=== PATIENT | female | born 1955 | race Caucasian/White ===

== ENCOUNTER 2021-01-26 02:23 | Outpatient (RCR) | payer MEDICARE, MEDICAID, SELFPAY | END 2021-02-07 23:59 | disposition home or self-care (01) | LOC: INF 02:23 | PROVIDERS: PCP Family Medicine; Visit Provider Internal Medicine Hematology & Oncology | DX: C21.0 Malignant neoplasm of anus, unspecified (principal); Z45.2 Encounter for adjustment and management of vascular access device | CPT/HCPCS: 36573 ==

== ENCOUNTER 2021-02-23 02:37 | Outpatient (RCR) | payer MEDICARE, MEDICAID, SELFPAY ==
[2021-02-23 11:26] LABS: Abs Immature Grans 0.05 10^3/uL (0.0-0.06); Absolute Basophil Count 0.01 10^3/uL (0.0-0.2); Absolute Eosinophil Count 0.13 10^3/uL (0.0-0.7); Absolute Lymphocyte Count 0.31 10^3/uL (1.2-3.4); Absolute Monocyte Count 0.49 10^3/uL (0.1-0.8); Absolute Neutrophil Count 3.46 10^3/uL (1.2-6.7); Basophils % 0.2; Eosinophils % 2.9; HCT 26.6 % (36.0-46.0); HGB 8.8 g/dL (11.2-15.7); Immature Grans % 1.1; MCH 32.2 pg (27.0-33.0); MCHC 33.1 % (32.0-36.0); MCV 97.4 fL (80-95); MPV 10.2 fL (8.0-11.0); Neutrophils % 77.8; Nucleated RBC 0 %; Platelet Count 113 10^3/uL (130-400); RBC 2.73 10^6/uL (3.93-5.22); RDW 14.3 % (11.7-14.6); WBC 4.45 10^3/uL (4.4-10.8)
[2021-02-23 11:41] LABS: Diff Comment Diff Reviewed; RBC Morphology Normal
== END 2021-03-10 23:59 | disposition home or self-care (01) ==
LOC: INF 02:37
PROVIDERS: PCP Family Medicine; Visit Provider Internal Medicine Hematology & Oncology
DX: C21.0 Malignant neoplasm of anus, unspecified (principal); Z45.2 Encounter for adjustment and management of vascular access device
CPT/HCPCS: 36573; 36592; 85025

== ENCOUNTER 2021-04-20 12:11 | Outpatient (RCR) | payer MEDICARE, MEDICAID, SELFPAY ==
[2021-04-20 12:10] LABS: Abs Immature Grans 0.06 10^3/uL (0.0-0.06); Absolute Basophil Count 0.03 10^3/uL (0.0-0.2); Absolute Eosinophil Count 0.13 10^3/uL (0.0-0.7); Absolute Lymphocyte Count 0.55 10^3/uL (1.2-3.4); Absolute Monocyte Count 0.85 10^3/uL (0.1-0.8); Absolute Neutrophil Count 3.59 10^3/uL (1.2-6.7); Basophils % 0.6; Eosinophils % 2.5; HCT 35.8 % (36.0-46.0); HGB 11.4 g/dL (11.2-15.7); Immature Grans % 1.2; Lymphocytes % 10.6; MCH 33.5 pg (27.0-33.0); MCHC 31.8 % (32.0-36.0); MCV 105.3 fL (80-95); MPV 9.4 fL (8.0-11.0); Monocytes % 16.3; Neutrophils % 68.8; Nucleated RBC 0 %; Platelet Count 257 10^3/uL (130-400); RDW 17.2 % (11.7-14.6); RDW-SD 66.3 fL; WBC 5.21 10^3/uL (4.4-10.8)
[2021-04-20 12:57] LABS: ALT 43 U/L (14-59); AST 34 U/L (15-37); Albumin 3.3 g/dL (3.4-5.0); Alkaline Phosphatase 139 U/L (46-116); Anion Gap 8.3 mmol/L (3-11); BUN 8 mg/dL (7-18); Bilirubin, Total 0.3 mg/dL (0.2-1.0); CO2 29.7 mmol/L (21.0-32.0); CREATININE 0.8 mg/dL (0.55-1.02); Calcium 9.3 mg/dL (8.5-10.1); Chloride 105 mmol/L (98-107); Glucose 100 mg/dL (74-106); Potassium 3.8 mmol/L (3.5-5.1); Sodium 143 mmol/L (136-145); Total Protein 7.1 g/dL (6.4-8.2)
== END 2021-05-10 23:59 | disposition home or self-care (01) ==
LOC: INF 12:11
PROVIDERS: PCP Family Medicine; Visit Provider Internal Medicine Hematology & Oncology
DX: C21.0 Malignant neoplasm of anus, unspecified (principal); Z45.2 Encounter for adjustment and management of vascular access device
CPT/HCPCS: 36415; 80053; 85025

== ENCOUNTER → 2024-01-30 14:24 | Outpatient (BNVA) | payer MEDICARE, MEDICAID, SELFPAY | PROVIDERS: PCP Family Medicine; Referring Provider Family Medicine; Visit Provider Student in an Organized Health Care Education/Training Program | DX: M24.661 Ankylosis, right knee (principal) | CPT/HCPCS: 99203 ==

== ENCOUNTER → 2024-02-13 02:07 | Outpatient (CLI) | payer MEDICARE, MEDICAID, SELFPAY ==
--- NOTE | 2024-02-13 07:30 | DI.CT_ITS ---
Exam(s) CT LOWER EXTREMITY RT WO EXAM: CT LOWER EXTREMITY RT WO CLINICAL HISTORY: rt knee pain, m25.561,m24.669,arthrofibrosis of knee joint. TECHNIQUE: Imaging Protocol: Axial computed tomography images with coronal and sagittal reformatted images were created and reviewed. CONTRAST MATERIAL: Intravenous: None COMPARISON: DX Femur RT from 11/19/2022 FINDINGS: HARDWARE: There is a lateral fixation plate in the femur extending to the level of the lateral femora l condyle. There is also an ipsilateral total knee prosthesis. There is no obvious joint effusion. OSSEOUS: There are no obvious fractures evident. No evidence of obvious hardware loosening. No evidence of o steomyelitis. IMPRESSION: No obvious hardware loosening. No obvious joint effusion. No evidence of osteomyelitis. RADIATION DOSE DELIVERED: Total DLP DATA REPOSITORY: All CT scans at this facility are submitted to the National Radiology Data Registry (NRDR) Dose Index Registry (DIR) with the [employer] (A[employer]). RADIATION OPTIMIZATION: All CT scans at this facility use at least one of these dose optimization te chniques: automated exposure control; mA and/or kV adjustment per patient size (includes targeted exa ms where dose is matched to clinical indication); or iterative reconstruction.
== END ==
PROVIDERS: PCP Family Medicine; Visit Provider Student in an Organized Health Care Education/Training Program
DX: M24.661 Ankylosis, right knee (principal); M25.561 Pain in right knee
CPT/HCPCS: 73700

== ENCOUNTER 2024-03-21 10:41 | Day surgery (SDC) | payer MEDICARE, MEDICAID, SELFPAY ==
[2024-03-21] VITALS (25 sets, daily range): BP systolic 130–167; BP diastolic 62–96; PULSE 65–84; RESP 10–23; TEMP 35.9–36.6; O2SAT 94–98; BMI 25.3
[2024-03-21] MEDS: Celecoxib 200 MG CAP 400 MG PO (11:12)
[2024-03-21] MEDS: Acetaminophen 500 MG TAB 1000 MG PO (11:12)
[2024-03-21] MEDS: Lactated Ringers 1,000 ML 80 ML IV (11:30)
--- NOTE | 2024-03-21 12:11 | HPE_ITS ---
Assessment and Plan Assessment and plan (1) Arthrofibrosis of knee joint: Status: Acute Assessment and plan: Simran is a 68-year-old female who has had significant trauma to right hand following knee replacement. She now is arthrofibrosis. As a step to hopefully treat some of her symptoms of stiffness and pain I recommended arthroscopic synovectomy. Is quite possible that some of her symptoms are coming from the plate irritation of the IT band or even potentially loosening of the components. However, based on her clinical history the most likely scenario is scarring from within the knee. Therefore, I offered arthroscopic synovectomy. She has no other medical constraints to surgery today. I reviewed the technical details. I reviewed rehabilitation time frames. I discussed the risk to include bleeding, infection, pain, continued stiffness. Despite these risk, she elected to proceed. History of Present Illness History of Present Illness Chief Complaint: Right Knee Pain and Stiffness Narrative: Simran is a 68-year-old female who is status post right knee replacement and another institution. She suffered a periprosthetic distal femur fracture which was fixed with open reduction and a long sideplate. She was able to heal this fracture but continued to have stiffness and difficulties with the knee. Prior to the fall she felt the knee was doing well with excellent range of motion. She reports some stiffness within the knee and limited flexion. She also has some pain overlying the plate. Please see the previous office note for complete detailed history but she is here today for arthroscopic synovectomy of the right knee with manipulation due to arthrofibrosis. She denies any new health ch anges. No numbness or tingling. Review of Systems All systems reviewed & are unremarkable except as noted in HPI and below PFSH All Active Problems Arthrofibrosis of knee joint (Acute) Sacroiliac joint dysfunction of right side (Chronic) Spondylosis of lumbar region without myelopathy or radiculopathy (Chronic) Spondylosis of lumbar region without myelopathy or radiculopathy (Acute) Medical History Mass of anus Excision of anal canal mass 12/01/20 Colon cancer Psychophysiologic insomnia Osteoporosis Nicotine dependence Idiopathic osteoarthritis Hyperlipidemia Alopecia GERD (gastroesophageal reflux disease) Chronic pain syndrome Hx of pneumothorax Overweight (BMI 25.0-29.9) Tobacco abuse Pain of right hip joint Breast cancer Lumbosacral spondylosis Depression Chronic insomnia Dyslipidemia Cervical spondylosis Primary osteoarthritis Folliculitis of perineum Lateral epicondylitis, right elbow Surgical History radiation Replacement of total knee joint Total replacement of hip 2006 and 2012 Rotator Cuff Repair Abdominal hysterectomy Breast, Lumpectomy Family History Mother Pneumonia Father Heart disease Other Diabetes Essential hypertension Social History Smoking/Tobacco Use Status: Former Tobacco Use Smoking risk assessment performed?: Yes Alcohol Intake: never Drug use: Never Substance use type: does not use Details: currently has a nicotine patch on Housing: house Do you feel safe at home: Yes Do you feel safe in your relationship?: Yes Meds Allergies and Home Medications Allergies Allergy/AdvReac Type Severity Reaction Status Date / Time Penicillins Allergy Intermediate Hives Verified 03/21/24 11:08 meperidine Allergy Unknown vomiting Verified 03/21/24 11:08 venlafaxine (From Effexor) Allergy Unknown vomiting Verified 03/21/24 11:08 Home Medications ?Medication ?Instructions ?Recorded ?Confirmed ?Type atorvastatin 80 mg tablet 80 mg PO DAILY 06/15/22 03/21/24 History diclofenac sodium 1 % topical gel 2 g topical TID 06/15/22 03/21/24 History (Voltaren Arthritis Pain) lidocaine 4 % topical patch 1 patch topical DAILY PRN 06/15/22 03/21/24 History lidocaine 5 % topical ointment 1 applic topical BID 06/15/22 03/21/24 History nicotine 21 mg/24 hr daily 1 patch transdermal Q24H 06/15/22 03/21/24 History transdermal patch trazodone 100 mg tablet 200 mg PO DAILY 06/15/22 03/21/24 History cholecalciferol (vitamin D3) 50 50 mcg PO DAILY 03/20/24 03/21/24 History mcg (2,000 unit) capsule lisinopril 10 mg tablet 10 mg PO DAILY 03/20/24 03/21/24 History sertraline 25 mg tablet 25 mg PO DAILY 03/20/24 03/21/24 History Exam Const General: cooperative, healthy appearing, comfortable and no acute distress Resp Effort & Inspection: normal respiratory effort Auscultation: clear to auscultation bilaterally Cardio Rate: regular rate Rhythm: regular rhythm Results Last Vital Signs Temp 35.9 C L 03/21/24 11:00 Pulse 80 03/21/24 11:00 Resp 20 03/21/24 11:00 BP 145/74 H 03/21/24 11:00 Pulse Ox 94 03/21/24 11:00
--- NOTE | 2024-03-21 12:13 | ANES.PREOP_ITS ---
General Info Date of Service Date Performed: 03/21/24 Height: 5 ft 2 in Weight: 62.8 kg Body Mass Index (BMI): 25.3 Surgical Procedure: Operation Date: 03/21/24 14:25 Proposed Procedure Side Surgeon p Knee Arthroscopy Synovectomy Right Madi Patel MD Meds Allergies and Home Medications Allergies Allergy/AdvReac Type Severity Reaction Status Date / Time Penicillins Allergy Intermediate Hives Verified 03/21/24 11:08 meperidine Allergy Unknown vomiting Verified 03/21/24 11:08 venlafaxine (From Effexor) Allergy Unknown vomiting Verified 03/21/24 11:08 Home Medication ?Medication ?Instructions ?Recorded atorvastatin 80 mg tablet 80 mg PO DAILY 06/15/22 diclofenac sodium 1 % topical gel 2 g topical TID 06/15/22 (Voltaren Arthritis Pain) lidocaine 4 % topical patch 1 patch topical DAILY PRN 06/15/22 lidocaine 5 % topical ointment 1 applic topical BID 06/15/22 nicotine 21 mg/24 hr daily 1 patch transdermal Q24H 06/15/22 transdermal patch trazodone 100 mg tablet 200 mg PO DAILY 06/15/22 cholecalciferol (vitamin D3) 50 50 mcg PO DAILY 03/20/24 mcg (2,000 unit) capsule lisinopril 10 mg tablet 10 mg PO DAILY 03/20/24 sertraline 25 mg tablet 25 mg PO DAILY 03/20/24 Current Visit Medications: Current Medications Generic Name Dose Route Start Last Admin Trade Name Freq PRN Reason Stop Dose Admin Acetaminophen 1,000 mg 03/21/24 06:00 03/21/24 11:12 Acetaminophen 500 Mg Tab PO 03/21/24 23:59 1,000 mg PREOP DARRICK Administration Celecoxib 400 mg 03/21/24 06:00 03/21/24 11:12 Celecoxib 200 Mg Cap PO 03/21/24 23:59 400 mg PREOP DARIRCK Administration Ringer's Solution 1,000 mls @ 80 mls/hr 03/21/24 06:00 03/21/24 11:30 IV 03/21/24 23:59 80 mls/hr INFUSION DARRICK Administration Cefazolin Sodium/Dextrose 2 gm in 50 mls @ 100 mls/hr 03/21/24 06:00 Ancef Duplex IVPB 03/21/24 23:59 PREOP DARRICK Tranexamic Acid/Sodium Chloride 1,000 mg in 100 mls @ 600 mls/hr 03/21/24 0 6:00 IVPB 03/21/24 23:59 PREOP DARRICK IV Miscellaneous Supplies 1 each 03/21/24 06:00 Iv Access IV 03/21/24 23:59 DIRECTED DARRICK Sodium Chloride 0 ml 03/21/24 06:00 Normal Saline Flush 10 Ml Syr IV 03/21/24 23:59 PRN PRN Sodium Chloride 0 ml 03/21/24 06:00 Normal Saline 10 Ml Vial IJ 03/21/24 23:59 DIRECTED PRN Sterile Water 0 ml 03/21/24 06:00 Water,Injection,Sterile 10 Ml Vial IJ 03/21/24 23:59 DIRECTED PRN PFSH Active Problems Active Problems: Problem Status Onset Code Arthrofibrosis of knee joint Acute M24.669 Sacroiliac joint dysfunction of right side Chronic M53.3 Spondylosis of lumbar region without myelopathy or radiculopathy Chronic M47.816 Spondylosis of lumbar region without myelopathy or radiculopathy Acute M47.816 Medical History Medical History Mass of anus Excision of anal canal mass 12/01/20 Colon cancer Psychophysiologic insomnia Osteoporosis Nicotine dependence Idiopathic osteoarthritis Hyperlipidemia Alopecia GERD (gastroesophageal reflux disease) Chronic pain syndrome Hx of pneumothorax Overweight (BMI 25.0-29.9) Tobacco abuse Pain of right hip joint Breast cancer Lumbosacral spondylosis Depression Chronic insomnia Dyslipidemia Cervical spondylosis Primary osteoarthritis Folliculitis of perineum Lateral epicondylitis, right elbow Surgical History Surgical History radiation Replacement of total knee joint Total replacement of hip 2006 and 2012 Rotator Cuff Repair Abdominal hysterectomy Breast, Lumpectomy Tobacco Smoking/Tobacco Use Status: Former Tobacco Use Alcohol Alcohol Intake: never Substance Use Substance use: Never Substance use type: does not use Details: currently has a nicotine patch on Vital Signs and Lab Results Vital Signs Most Recent Vital Signs in EMR: Most Recent Vital Signs Temp Pulse Resp BP Pulse Ox 35.9 C L 80 20 145/74 H 94 03/21/24 11:00 03/21/24 11:00 03/21/24 11:00 03/21/24 11:00 03/21/24 11:00 Lab Results Blood Type / Crossmatch: No Data to Display Complete Blood Count: No Data to Display Complete Metabolic Panel: No Data to Display Liver Function Panel: No Data to Display Coagulation Panel: No Data to Display Cardiac Panel: No Data to Display Arterial Blood Gas: No Data to Display Venous Blood Gas: No Data to Display Pancreas Panel: No Data to Display Thyroid Panel: No Data to Display Infectious Disease: No Data to Display Blood Cultures: No Data to Display Toxicology Panel: No Data to Display Anesthesia Assessment and Plan Anesthesia History Personal History: No History of Anesthesia Complications Family History: No Family History of Anesthesia Complications Exercise Tolerance Exercise Tolerance: Metabolic Equivalents>4 Cardiac & Pulmonary Exam Cardiac Exam: Normal S1/S2 Heart Sounds Pulmonary Exam: Clear Bilateral Breath Sounds Implantable Cardiac Device Does patient have a Pacemaker or an ICD?: No Airway Exam Known Difficult Airway: No Mallampati Class: 4 Mouth Opening: Narrow (< 3cm) Thyromental Distance: Less than 3 cm Neck Range of Motion: Limited ROM Neck Circumference: Normal Teeth Condition: Edentulous ASA Classification ASA Score: ASA 2 Emergency Case?: No NPO Status NPO Status: NPO Clears >2 hours, Solids >8 hours Anesthesia Plan Resuscitation Status: Full Code Anesthesia Technique: General Anesthesia Airway Planned: Endotracheal Tube Monitors Used: Standard Monitors Preoperative Comments:: 68 yo female for knee scope/manipulation. Sig PMHx: HTN (lisinopril), GERD (denies), depression, chronic pain, cervical spondylosis. former smoker.
--- NOTE | 2024-03-21 13:08 | W.ANESNERVE ---
Nerve Block Single Injection Procedure Date and Time Date Performed: 03/21/24 Procedure Start: 12:50 Location Where Procedure Performed Procedure Location: Day Surgery Unit Reason Performed: Postoperative Analgesia Requesting Provider: Madi Patel Timeout Performed Timeout Performed: Yes Monitoring Used ECG, Blood Pressure, SpO2 and See EMR for corresponding vital signs Sterility Sterility: Hand Hygiene, Surgical Cap, Surgical Mask, Sterile Gloves and Chlorhexidine Sedation Given During Procedure Sedation Given (Indicate Dose Given): Propofol IV Dose:: 20mg Patient Mental Status Patient Mental Status: Sedate with meaningful communication Nerve Block 1st Nerve Block: Laterality: Right Block Type: Adductor Canal Ultrasound Image Saved?: Yes Needle / Catheter Used: 100mm SonoPlex II Local Anesthetic Bolus (Indicate Dose Given): Lidocaine used for local infiltration of skin, Injected in 3-5ml increments after negative blood aspiration and Bupivacaine 0.25% Dose:: 12ml Additives (Indicate Dose Given): None Ultrasound: Sterile probe cover and gel used Nerve Stimulator: Supplement to Ultrasound use and No twitch or parasthesia noted < 0.5 mA Paresthesia: None Procedure Tolerated: No Complications and Patient tolerated well Procedure Outcome: Successful Performed By: Isaiah Mac Supervised By: Sonny Frost
[2024-03-21] MEDS: ceFAZolin 2 GM/50 ML BAG IVPB (13:35)
[2024-03-21] MEDS: TRANEXAMIC ACID/SOD. CHL. 1,000 MG/100 ML BAG 600 MG IVPB (13:41)
--- NOTE | 2024-03-21 14:02 | W.PM.DSUDISC ---
Date of service: 03/21/24 Time of Service: 14:03 Discharge Plan Disposition Patient Disposition: Home Condition: Good Discharge Details Reason For Visit: R Knee Arthroscopy Attending Provider: Madi Patel Primary Care Provider: ANA BLACK Home Meds and New Rx's Prescriptions: New hydrocodone-acetaminophen 5-325 mg tablet 1 tab PO Q6H PRN (Reason: pain) Qty: 6 0RF acetaminophen 500 mg tablet 1,000 mg PO TID Qty: 90 0RF ibuprofen 600 mg tablet 600 mg PO TID PRN (Reason: pain) Qty: 90 0RF Continued atorvastatin 80 mg Tablet 80 mg PO DAILY lidocaine 4 % Adhesive Patch,Medicated 1 patch TOPICAL DAILY PRN trazodone 100 mg Tablet 200 mg PO DAILY nicotine 21 mg/24 hr Patch 24 Hour 1 patch TRANSDERMAL Q24H diclofenac sodium [Voltaren Arthritis Pain] 1 % Gel 2 g TOPICAL TID lidocaine 5 % Ointment 1 applic TOPICAL BID lisinopril 10 mg tablet 10 mg PO DAILY Patient Comments: TAKE 1 TABLET BY MOUTH ONCE DAILY sertraline 25 mg tablet 25 mg PO DAILY Patient Comments: TAKE 1 TABLET BY MOUTH ONCE DAILY cholecalciferol (vitamin D3) 50 mcg (2,000 unit) capsule 50 mcg PO DAILY Patient Comments: TAKE 1 CAPSULE BY MOUTH ONCE DAILY Discharge Instructions Additional Instructions: Knee Manipulation Discharge Instructions Activity: You should begin moving as soon as possible. You may work on flexion but also equally maintain extension. You may bear weight as tolerated, using crutches only for support/comfort. You should apply ice to help with swelling and elevate when possible (especially in the first few days). Dressings: The knee dressing may come down after 48 hours. You may shower and get the wound wet at that time. You should keep the wounds covered with a bandaid until follow-up. Medications: - Rarely does this require any stronger pain medications. - Recommend to take up to 1000mg of Acetaminophen (Tylenol) and 600mg of Ibuprofen (Advil) every 8 hours as needed. These larger strength tablets were called in but you also may use [id number]. Follow-up: 7-10 days Stand Alone Forms: Amanda Knee Arthroscopy Equipment/Supplies: Partial Weight Bearing Crutches Activity:: Activity as Tolerated Remove Dressings/Wound Care:: 48 hours Shower/Bathe:: 48 hours Diet:: As Tolerated Discharge Orders Discharge Orders: Discharge Order (Routine); Ordered 03/21/24 Ordered By: Justino Vaughn DS: Diagnosis Discharge Diagnosis (1) Arthrofibrosis of knee joint: Status: Acute
[2024-03-21] MEDS: Bupivacaine 0.5% Pres-Free 30 ML VIAL (14:03)
[2024-03-21] MEDS: EPINEPHrine 10 MG/10 ML ML (14:44)
--- NOTE | 2024-03-21 15:49 | W.ANESPOSTOP ---
Postoperative Evaluation Date, Time and Location Date Performed: 03/21/24 Time Performed: 15:28 Patient Location: Day Surgery Unit Vital Signs Most Recent Imported Vital Signs: Most Recent Vital Signs Temp Pulse Resp BP Pulse Ox 36.4 C L 67 16 165/65 H 96 03/21/24 15:15 03/21/24 15:15 03/21/24 15:15 03/21/24 15:15 03/21/24 15:15 Pain Score Most Recent Pain Score: Most Recent Pain Score Pain Level 2 03/21/24 15:15 Assessment Mental Status: Awake (Alert & Oriented to Patient Baseline) Airway and Respiratory Function: Patent airway with normal (patient baseline) respiratory exam Cardiovascular Function: Hemodynamically Stable Hydration Status: Adequately Hydrated Nausea & Vomiting: No Nausea or Vomiting Pain: Pain is tolerable per patient Peripheral Nerve Block: Patient did not receive a nerve block
--- NOTE | 2024-03-21 17:20 | ROE_ITS ---
Date of service: 03/21/24 Time of Service: 14:00 Operative Note Operative Note DATE OF PROCEDURE: 03/21/24 PRE-OP DIAGNOSIS: Right Knee Pain and Arthrofibrosis POST-OP DIAGNOSIS: same PROCEDURE: Arthroscopic Synovectomy of 3 Compartments with Manipulation - RIGHT Knee SURGEON: Mdai Patel ANESTHESIA TYPE: General LMA/ETT Refer to Anesthesia Record ESTIMATED BLOOD LOSS: 0 PATHOLOGY: none sent TOURNIQUET TIME: 0 COMPLICATIONS: None Patient was transported to: PACU Patient's condition: stable Indications: I have seen Simran in clinic for symptoms of arthrofibrosis of the knee following fracture fixation of a periprosthetic fracture after remote knee replacement surgery. Nonoperative measures were exhausted but disability due to lack of motion persisted. I discussed knee arthroscopy with synovectomy with manipulation with the patient. I reviewed the risks of the procedure to include, but not limited to, bleeding, infection, pain, continued stiffness, recurrence, blood clot. Despite these risks, the patient elected to proceed. Findings: Preoperative Range of Motion: Flexion: 90 Extension:0 Postoperative Range of Motion: Flexion:125 Extension:0 Procedure Description: Simran was greeted in the preoperative holding area where the correct side was identified and marked. The consent was reviewed with the patient and signed. The history and physical was updated. All questions were answered. She was taken back to the operating room. The patient was placed into the supine position on the operating room table. All bony prominences were well padded. Prophylactic antibiotics in the form of Cefazolin were administered. Preoperative range of motion was assessed as 0 - 90. The right leg was then prepped with Chloraprep and draped in a standard fashion with stockinette and extremity drape. A timeout to confirm correct identity, side and site, procedure, allergies, anesthesia, and medical concerns was performed. A standard lateral portal was made at the lateral border of the patella tendon in line with the inferior pole of the patella, soft spot. The skin and deep tissue was incised sharply and the blunt trochar was inserted atraumatically. At this point, I had visualization of the femoral component. A superolateral portal was then established with spinal needle localization just superior and lateral to the patella. A knife was taken down through the skin and soft tissue to enter the knee joint. Starting in the superior compartment above the femoral component and anterior to the femur I released all scarring between the anterior femoral synovium and the overlying extensor mechanism. This was taken through all of any noticeable scar tissue until the superior patellar pouch was fully released and mobile. There were tight scar bands throughout the space with minimal opening of the suprapatellar region. This resection was carried out mostly with electrocautery as well as shaver. Once this was released fully from lateral to medial superiorly I then continue working down the lateral gutter. All scar tissue in the lateral gutter was released so there is normal space and movement between the capsular tissues and the edge of the femoral component and femur. This was taken down through the lateral gutter such that I was able to identify the polyethylene to its posterior corner. Once again, all scar tissue in this area was resected so the polyethylene was easily visible and there is no interposed tissue in the back or the polyethylene was identified. I then continued to work anteriorly. To continue the synovectomy from the lateral compartment to the anterior compartment into the medial compartment, I placed a medial portal under spinal needle localization. Once this was in place it became another working portal and I continued the synovectomy through the anterior compartment to the medial compartment. There was interposed tissue seen anteriorly from within the notch and also about the lateral and medial as pect of the polyethylene?femur interface. I freed up the medial gutter so I was able to visualize the polyethylene from anterior to posterior. There is no interposed tissue after full synovectomy was performed. Adhesions between the capsule and the femur were released. This was continued up the medial gutter until it met up with the releases performed previously in the superior compartment. Any remnant scar tissue from around the patella was then removed with a shaver and electrocautery. The arthroscope was brought back into the suprapatellar pouch and the leg was in full extension. The knee was thoroughly irrigated with the arthroscopic fluid on high flow and pressure. Inflow was stopped and excess fluid was removed. The leg was removed from the spider leg quinteros and manipulation was performed. I first push the knee into flexion and was able to obtain 125 degrees. The wounds were closed with 4-0 Nylon. 0.5% bupivacaine was injected around the portal sites and into the knee. The wounds were dressed with Xeroform, 4x4 gauze, ABD pad, Kerlix and an NELIDA wrap. A cryo-cuff was applied. The patient tolerated the procedure well and was returned to the Same Day Surgery area in a stable condition suffering no known complication..
== END 2024-03-21 16:15 | disposition home or self-care (01) ==
PROVIDERS: PCP Family Medicine; Visit Provider Student in an Organized Health Care Education/Training Program
PROC: (CPT 29870; principal; 2024-03-21 14:15)
DX: M24.661 Ankylosis, right knee (principal); K21.9 Gastro-esophageal reflux disease without esophagitis; E78.5 Hyperlipidemia, unspecified; G89.4 Chronic pain syndrome; F17.210 Nicotine dependence, cigarettes, uncomplicated
CPT/HCPCS: 29876; J0665; J0690; J1100; J1805; J2405; J2704

== ENCOUNTER → 2024-04-02 13:21 | Outpatient (BNVA) | payer MEDICARE, MEDICAID, SELFPAY | PROVIDERS: PCP Family Medicine; Referring Provider Family Medicine | DX: Z47.89 Encounter for other orthopedic aftercare (principal); R29.898 Other symptoms and signs involving the musculoskeletal system ==

== ENCOUNTER → 2024-04-30 14:40 | Outpatient (BNVA) | payer MEDICARE, MEDICAID, SELFPAY | PROVIDERS: PCP Family Medicine; Referring Provider Family Medicine; Visit Provider Student in an Organized Health Care Education/Training Program | DX: Z47.89 Encounter for other orthopedic aftercare (principal); M24.661 Ankylosis, right knee | CPT/HCPCS: 99213 ==

== ENCOUNTER 2024-05-15 01:17 | Outpatient (CLI) | payer MEDICARE, MEDICAID, SELFPAY ==
--- NOTE | 2024-05-15 07:15 | DI.NM_ITS ---
Exam(s) NM BONE SCAN 3 PHASE EXAM: NM BONE SCAN 3 PHASE CLINICAL HISTORY: PAIN, ?LOOSENING of orthopedic device,[id number]. TECHNIQUE: Injected Dose: 25 mCi Tc-99m MDP Flow images, immediate static images and delayed images of the knees were performed. Whole body arlyn yed images were also performed. COMPARISON: CR XR HIP MIN 2V RT from 02/11/2022 CR XR LS SPINE 2-3 VIEWS from 02/11/2022 CR XR FEMUR 2 VIEWS RIGHT (GENERIC) from 04/07/2022 DX XR FEMUR 2 VIEWS RIGHT (GENERIC) from 05/06/2022 DX XR FEMUR 2 VIEWS RIGHT (GENERIC) from 08/27/2022 DX Femur RT from 11/19/[address] LOWER EXTREMITY RT WO from 02/13/2024 FINDINGS: Perfusion: Mildly increased flow to the right knee. Blood Pool: Increased activity seen around the right knee, at the distal femur. Delayed: Persistent increased activity noted around the femoral component of the knee prosthesis as w ell as patella. Mildly increased activity noted along the femoral fixation plate. Mildly increased activity at both sternoclavicular joints, mid thoracic and upper lumbar spine, presu mably degenerative. IMPRESSION: Increased activity around the femoral portion of the knee prosthesis as well as patella, suspicious f or loosening. DATA REPOSITORY:
== END 2024-05-15 01:37 ==
LOC: DI 01:17
PROVIDERS: PCP Family Medicine; Visit Provider Student in an Organized Health Care Education/Training Program
DX: T84.84XA Pain due to internal orthopedic prosthetic devices, implants and grafts, initial encounter (principal); Z96.652 Presence of left artificial knee joint
CPT/HCPCS: 78315

== ENCOUNTER → 2024-06-11 13:19 | Outpatient (BNVA) | payer MEDICARE, MEDICAID, SELFPAY | PROVIDERS: PCP Family Medicine; Referring Provider Family Medicine; Visit Provider Student in an Organized Health Care Education/Training Program | DX: M24.661 Ankylosis, right knee (principal) | CPT/HCPCS: 99214 ==

== ENCOUNTER 2024-07-23 03:33 | Outpatient (CLI) | payer MEDICARE, MEDICAID, SELFPAY ==
[2024-07-23 15:25] LABS: HCT 38.4 % (36.0-46.0); HGB 12.7 g/dL (11.2-15.7); MCH 31.2 pg (27.0-33.0); MCHC 33.1 % (32.0-36.0); MCV 94 fL (80-95); MPV 9.3 fL (8.0-11.0); Platelet Count 235 10^3/uL (130-400); RBC 4.07 10^6/uL (3.93-5.22); RDW 13.2 % (11.7-14.6); RDW-SD 45.4 fL; WBC 6.11 10^3/uL (4.4-10.8)
[2024-07-23 16:19] LABS: Anion Gap 7.2 mmol/L (3-11); BUN 13 mg/dL (7-18); CO2 30.8 mmol/L (21.0-32.0); CREATININE 0.9 mg/dL (0.55-1.02); Calcium 9.3 mg/dL (8.5-10.1); Chloride 107 mmol/L (98-107); Glucose 122 mg/dL (74-106); Potassium 4.2 mmol/L (3.5-5.1); Sodium 145 mmol/L (136-145)
== END 2024-07-23 03:34 | disposition home or self-care (01) ==
LOC: LBO 03:33
PROVIDERS: PCP Family Medicine; Visit Provider Student in an Organized Health Care Education/Training Program
DX: T84.032A Mechanical loosening of internal right knee prosthetic joint, initial encounter (principal); M24.669 Ankylosis, unspecified knee; Z01.818 Encounter for other preprocedural examination
CPT/HCPCS: 36415; 80048; 85027

== ENCOUNTER 2024-08-31 08:26 | Inpatient (IN) | payer MEDICARE, MEDICAID, SELFPAY ==
[2024-08-31] VITALS (51 sets, daily range): BP systolic 82–157; BP diastolic 35–113; PULSE 65–98; RESP 11–21; TEMP 36.3–37; O2SAT 91–97; BMI 26.4
--- NOTE | 2024-08-31 | DI.RAD_ITS ---
Exam(s) XR KNEE RT 2V AP,LAT EXAM: XR KNEE RT 2V AP,LAT CLINICAL HISTORY: s/p removal of hardware and revision TKA. TECHNIQUE: 2D digital imaging was performed. COMPARISON: DX Femur RT from 11/19/2022 FINDINGS: Two views Postop AP supine and cross-table lateral views reveal a revision arthroplasty with long stem componen ts in place which appears to be in satisfactory position alignment. No evidence of fracture. In addition, the previously present fixation plate on the lateral aspect of the femur which was evide nt on images of 11/19/2022 has been removed IMPRESSION: Satisfactory postop appearance of revision prosthesis DATA REPOSITORY: RADIATION DOSE DELIVERED:
[2024-08-31] MEDS: Gabapentin 300 MG CAP PO ×2 (09:14→20:28)
[2024-08-31] MEDS: Acetaminophen 500 MG TAB 1000 MG PO ×2 (09:14→20:28)
[2024-08-31] MEDS: Celecoxib 200 MG CAP 400 MG PO (09:14)
[2024-08-31] MEDS: Lactated Ringers 1,000 ML 80 ML IV ×2 (09:30→12:21)
--- NOTE | 2024-08-31 10:16 | W.ANESPRE ---
General Info Date of Service Date Performed: 08/31/24 Height: 5 ft 2 in Weight: 65.4 kg Body Mass Index (BMI): 26.4 Surgical Procedure: Operation Date: 08/31/24 11:55 Proposed Procedure Side Surgeon p Knee Total Revision, Attune w/Hardware Removal Right Madi Patel MD Meds Allergies and Home Medications Allergies Allergy/AdvReac Type Severity Reaction Status Date / Time Penicillins Allergy Intermediate Hives Verified 08/31/24 09:09 meperidine Allergy Unknown vomiting Verified 08/31/24 09:09 venlafaxine (From Effexor) Allergy Unknown vomiting Verified 08/31/24 09:09 Home Medication ?Medication ?Instructions ?Recorded atorvastatin 80 mg tablet 80 mg PO DAILY 06/15/22 diclofenac sodium 1 % topical gel 2 g topical TID 06/15/22 (Voltaren Arthritis Pain) trazodone 100 mg tablet 200 mg PO DAILY 06/15/22 cholecalciferol (vitamin D3) 50 50 mcg PO DAILY 03/20/24 mcg (2,000 unit) capsule lisinopril 10 mg tablet 10 mg PO DAILY 03/20/24 acetaminophen 500 mg tablet 1,000 mg (2 x 500 mg) PO TID #90 03/21/24 tabs ibuprofen 600 mg tablet 600 mg PO TID PRN pain #90 tabs 03/21/24 sertraline 25 mg tablet 50 mg PO DAILY 07/23/24 acetaminophen 500 mg tablet 1,000 mg (2 x 500 mg) PO Q8H PRN 08/31/24 pain #90 tabs aspirin 81 mg tablet,delayed 81 mg PO BID 30 days #60 tabs 08/31/24 release celecoxib 200 mg capsule (Celebrex) 200 mg PO BID PRN #60 caps 08/31/24 dexamethasone 4 mg tablet 4 mg PO DAILY #2 tabs 08/31/24 docusate sodium 100 mg capsule 100 mg PO BID #30 caps 08/31/24 (Colace) gabapentin 300 mg capsule 300 mg PO QHS #14 caps 08/31/24 oxycodone 5 mg tablet 5 mg PO Q4H PRN #18 tabs 08/31/24 pantoprazole 40 mg tablet,delayed 40 mg PO DAILY 14 days #14 tabs 08/31/24 release Current Visit Medications: Current Medications Generic Name Dose Route Start Last Admin Trade Name Freq PRN Reason Stop Dose Admin Acetaminophen 1,000 mg 08/31/24 06:00 08/31/24 09:14 Acetaminophen 500 Mg Tab PO 08/31/24 23:59 1,000 mg PREOP DARRICK Administration Acetaminophen 1,000 mg 08/31/24 14:00 Acetaminophen 500 Mg Tab PO TID DARRICK Aspirin 81 mg 08/31/24 20:00 Aspirin E.C. 81 Mg Tabec PO BID DARRICK Celecoxib 400 mg 08/31/24 06:00 08/31/24 09:14 Celecoxib 200 Mg Cap PO 08/31/24 23:59 400 mg PREOP DARRICK Administration Celecoxib 200 mg 08/31/24 20:00 Celecoxib 200 Mg Cap PO BID DARRICK Dexamethasone 4 mg 09/01/24 08:30 Dexamethasone 4 Mg Tab PO 09/02/24 08:31 DAILY DARRICK Docusate Sodium 100 mg 08/31/24 09:51 Docusate Sodium 100 Mg Cap PO BID PRN PRN Constipation Gabapentin 300 mg 08/31/24 06:00 08/31/24 09:14 Gabapentin 300 Mg Cap PO 08/31/24 23:59 300 mg PREOP DARRICK Administration Gabapentin 300 mg 08/31/24 20:00 Gabapentin 300 Mg Cap PO HS DARRICK Hydromorphone HCl 0.5 mg 08/31/24 09:51 Hydromorphone 2 Mg/Ml Syr IVP Q2H PRN PRN Ringer's Solution 1,000 mls @ 80 mls/hr 08/31/24 06:00 08/31/24 09:30 IV 08/31/24 23:59 80 mls/hr INFUSION DARRICK Administration Cefazolin Sodium/Dextrose 2 gm in 50 mls @ 100 mls/hr 08/31/24 06:00 Ancef Duplex IVPB 08/31/24 23:59 PREOP DARRICK Tranexamic Acid/Sodium Chloride 1,000 mg in 100 mls @ 600 mls/hr 08/31/24 06:00 IVPB 08/31/24 23:59 PREOP DARRICK Cefazolin Sodium/Dextrose 1 gm in 50 mls @ 100 mls/hr 08/31/24 10:00 Ancef Duplex IVPB 09/01/24 02:29 Q8H DARRICK IV Miscellaneous Supplies 1 each 08/31/24 06:00 Iv Access IV 08/31/24 23:59 DIRECTED DARRICK Ondansetron HCl 4 mg 08/31/24 09:51 Ondansetron 4 Mg/2 Ml Vial IVP Q6H PRN PRN Nausea Oxycodone HCl 0 mg 08/31/24 09:51 Oxycodone 5 Mg Tab PO Q3H PRN PRN Pain Pantoprazole Sodium 40 mg 09/01/24 07:30 Pantoprazole 40 Mg Tabcr PO DAILY@0730 [facility] Polyethylene Glycol 17 gm 08/31/24 09:51 Polyethylene Glycol 3350 17 Gm Packet PO BID PRN PRN Constipation Sodium Chloride 0 ml 08/31/24 06:00 Normal Saline Flush 10 Ml Syr IV 08/31/24 23:59 PRN PRN Sodium Chloride 0 ml 08/31/24 06:00 Normal Saline 10 Ml Vial IJ 08/31/24 23:59 DIRECTED PRN Sterile Water 0 ml 08/31/24 06:00 Water,Injection,Sterile 10 Ml Vial IJ 08/31/24 23:59 DIRECTED PRN PFSH Active Problems Active Problems: Problem Status Onset Code Mechanical loosening of internal right knee prosthetic joint Acute T84.032A Arthrofibrosis of knee joint Acute M24.669 Sacroiliac joint dysfunction of right side Chronic M53.3 Spondylosis of lumbar region without myelopathy or radiculopathy Chronic M47.816 Spondylosis of lumbar region without myelopathy or radiculopathy Acute M47.816 Medical History Medical History Colon cancer Psychophysiologic insomnia Osteoporosis Nicotine dependence quit on 02/09/24 Idiopathic osteoarthritis Hyperlipidemia Alopecia GERD (gastroesophageal reflux disease) Chronic pain syndrome Hx of pneumothorax Overweight (BMI 25.0-29.9) Tobacco abuse Pain of right hip joint Breast cancer Lumbosacral spondylosis Depression Chronic insomnia Dyslipidemia Cervical spondylosis Primary osteoarthritis Folliculitis of perineum Lateral epicondylitis, right elbow Surgical History Surgical History Mass of anus Excision of anal canal mass 12/01/20 - pt is unaware this was an excision; thought it was biopsy History of total right knee replacement (TKR) followed ORIF of right distal femur radiation Total replacement of hip Left Hemiarthroplasty 2006 Left AG 2012 Rotator Cuff Repair Bilateral Abdominal hysterectomy Breast, Lumpectomy Bilateral (Right first and more significant) Tobacco Smoking/Tobacco Use Status: Former Tobacco Use Alcohol Alcohol Intake: never Substance Use Substance use: Never Substance use type: does not use Vital Signs and Lab Results Vital Signs Most Recent Vital Signs in EMR: Most Recent Vital Signs Temp Pulse Resp BP Pulse Ox 36.4 C L 75 14 120/77 93 08/31/24 08:59 08/31/24 08:59 08/31/24 08:59 08/31/24 08:59 08/31/24 08:59 Lab Results Blood Type / Crossmatch: No Data to Display Complete Blood Count: No Data to Display Complete Metabolic Panel: No Data to Display Liver Function Panel: No Data to Display Coagulation Panel: No Data to Display Cardiac Panel: No Data to Display Arterial Blood Gas: No Data to Display Venous Blood Gas: No Data to Display Pancreas Panel: No Data to Display Thyroid Panel: No Data to Display Infectious Disease: No Data to Display Blood Cultures: No Data to Display Toxicology Panel: No Data to Display Anesthesia Assessment and Plan Anesthesia History Personal History: No History of Anesthesia Complications Family History: Other (daughter slow to wake) Exercise Tolerance Exercise Tolerance: Metabolic Equivalents<4 Pertinent Negatives Pertinent Negatives: No Symptoms of GERD, No Major Cardiovascular Symptoms or Complaints, No Major Pulmonary Symptoms or Complaints and No History of CVA/TIA Cardiac & Pulmonary Exam Cardiac Exam: Normal S1/S2 Heart Sounds Pulmonary Exam: Clear Bilateral Breath Sounds Cardiac and Pulmonary Comment:: See below in comments Implantable Cardiac Device Does patient have a Pacemaker or an ICD?: No Airway Exam Known Difficult Airway: No Mallampati Class: 4 Mouth Opening: Narrow (< 3cm) Thyromental Distance: Less than 3 cm Neck Range of Motion: Full ROM Neck Circumference: Normal Teeth Condition: Edentulous ASA Classification ASA Score: ASA 3 Emergency Case?: No NPO Status NPO Status: NPO Clears >2 hours, Solids >8 hours Anesthesia Plan Resuscitation Status: Full Code Anesthesia Technique: Spinal Anesthesia Airway Planned: Natural Airway Pain Management: Surgeon and patient request nerve block Monitors Used: Standard Monitors Preoperative Comments:: Occ cough evaluated, no significant sputum, dim, LLL, sats improved with C&DB.
--- NOTE | 2024-08-31 10:20 | W.PREOPHP ---
Documented by User: Hayley Machado 08/31/24 10:23 Assessment and Plan Assessment and plan (1) Mechanical loosening of internal right knee prosthetic joint: Status: Acute (2) Arthrofibrosis of knee joint: Status: Acute Assessment and plan: Plan: Educated patient on surgery covering surgical technique, recovery process, benefits and risks including but not limited to risk of infection, blood clot, damage to soft tissue/blood vessels/nerves in detail. After discussion patient gives verbal understanding of risks and elects to proceed with scheduling surgery. Patient had opportunity to have questions answered to their satisfaction. They will contact office if issues arise. Patient will proceed with revision of right TKA with hardware removal with Dr. Patel. History of Present Illness Narrative: Ms. Camargo is a 68-year-old female who presents to hospital for scheduled revision of right TKA with hardware removal; she is status post right TKA at [facility] [place] in 2006. Patient has been complicated by distal femur periprosthetic fracture after fall in 2021. She has continued to have discomfort, limited range of motion and crepitus. She continues to have discomfort primarily along the lateral portion of her knee. Due to her continued pain she wishes to proceed with surgical intervention. Review of Systems Cardiovascular Cardiovascular: Denies chest pain and Denies dyspnea Respiratory Respiratory: Reports cough (had a cold 1 month ago; still has lingering mostly dry cough) and Denies dyspnea PFSH All Active Problems Mechanical loosening of internal right knee prosthetic joint (Acute) Arthrofibrosis of knee joint (Acute) RIGHT TKR Status post arthroscopic synovectomy: 03/21/2024 Sacroiliac joint dysfunction of right side (Chronic) Spondylosis of lumbar region without myelopathy or radiculopathy (Chronic) Spondylosis of lumbar region without myelopathy or radiculopathy (Acute) Medical History Colon cancer Psychophysiologic insomnia Osteoporosis Nicotine dependence quit on 02/09/24 Idiopathic osteoarthritis Hyperlipidemia Alopecia GERD (gastroesophageal reflux disease) Chronic pain syndrome Hx of pneumothorax Overweight (BMI 25.0-29.9) Tobacco abuse Pain of right hip joint Breast cancer Lumbosacral spondylosis Depression Chronic insomnia Dyslipidemia Cervical spondylosis Primary osteoarthritis Folliculitis of perineum Lateral epicondylitis, right elbow Surgical History Mass of anus Excision of anal canal mass 12/01/20 - pt is unaware this was an excision; thought it was biopsy History of total right knee replacement (TKR) followed ORIF of right distal femur radiation Total replacement of hip Left Hemiarthroplasty 2006 Left AG 2012 Rotator Cuff Repair Bilateral Abdominal hysterectomy Breast, Lumpectomy Bilateral (Right first and more significant) Family History Mother Pneumonia Father Heart disease Other Diabetes Essential hypertension Social History Smoking/Tobacco Use Status: Former Tobacco Use Quit Date: 02/09/24 Smoking risk assessment performed?: Yes Alcohol Intake: never Drug use: Never Substance use type: does not use Housing: house Do you feel safe in your relationship?: Yes Meds Allergies and Home Medications Allergies Allergy/AdvReac Type Severity Reaction Status Date / Time Penicillins Allergy Intermediate Hives Verified 08/31/24 09:09 meperidine Allergy Unknown vomiting Verified 08/31/24 09:09 venlafaxine (From Effexor) Allergy Unknown vomiting Verified 08/31/24 09:09 Home Medications ?Medication ?Instructions ?Recorded ?Confirmed ?Type atorvastatin 80 mg tablet 80 mg PO DAILY 06/15/22 08/31/24 History diclofenac sodium 1 % topical gel 2 g topical TID 06/15/22 08/03/24 History (Voltaren Arthritis Pain) trazodone 100 mg tablet 200 mg PO DAILY 06/15/22 08/31/24 History cholecalciferol (vitamin D3) 50 50 mcg PO DAILY 03/20/24 08/31/24 History mcg (2,000 unit) capsule lisinopril 10 mg tablet 10 mg PO DAILY 03/20/24 08/31/24 History acetaminophen 500 mg tablet 1,000 mg (2 x 500 mg) PO TID #90 03/21/24 08/03/24 Rx tabs ibuprofen 600 mg tablet 600 mg PO TID PRN pain #90 tabs 03/21/24 08/31/24 Rx sertraline 25 mg tablet 50 mg PO DAILY 07/23/24 08/31/24 History acetaminophen 500 mg tablet 1,000 mg (2 x 500 mg) PO Q8H PRN 08/31/24 Rx pain #90 tabs aspirin 81 mg tablet,delayed 81 mg PO BID 30 days #60 tabs 08/31/24 Rx release celecoxib 200 mg capsule (Celebrex) 200 mg PO BID PRN #60 caps 08/31/24 Rx dexamethasone 4 mg tablet 4 mg PO DAILY #2 tabs 08/31/24 Rx docusate sodium 100 mg capsule 100 mg PO BID #30 caps 08/31/24 Rx (Colace) gabapentin 300 mg capsule 300 mg PO QHS #14 caps 08/31/24 Rx oxycodone 5 mg tablet 5 mg PO Q4H PRN #18 tabs 08/31/24 Rx pantoprazole 40 mg tablet,delayed 40 mg PO DAILY 14 days #14 tabs 08/31/24 Rx release Exam Const General: cooperative, comfortable and no acute distress Resp Effort & Inspection: normal respiratory effort and able to speak in complete sentences Auscultation: diminished lung sounds bilaterally, no rales, no rhonchi and no wheezes Cardio Heart Sounds: S1 normal and S2 normal Results Labs 09/01/24 06:16 09/01/24 06:16 Last Vital Signs Temp 97.5 F L 08/31/24 08:59 Pulse 75 08/31/24 08:59 Resp 14 08/31/24 08:59 BP 120/77 08/31/24 08:59 Pulse Ox 93 08/31/24 08:59 Documented by User: Madi Patel MD 09/01/24 10:58 Assessment and Plan Assessment and plan (1) Mechanical loosening of internal right knee prosthetic joint: Status: Acute (2) Arthrofibrosis of knee joint: Status: Acute Assessment and plan: Plan: Educated patient on surgery covering surgical technique, recovery process, benefits and risks including but not limited to risk of infection, blood clot, damage to soft tissue/blood vessels/nerves in detail. After discussion patient gives verbal understanding of risks and elects to proceed with scheduling surgery. Patient had opportunity to have questions answered to their satisfaction. They will contact office if issues arise. Patient will proceed with revision of right TKA with hardware removal with Dr. Patel. I interviewed and examined the patient with Hayley Machado PA-C. I agree with the documentation as above. The assessment and plan were formulated with my direct involvement. Simran has continued pain about her right knee along with stiffness following periprosthetic distal femur fracture and its subsequent repair. We have tried a host of other nonoperative options and at this point, given the findings of bone scan and her persistent symptoms, I offered removal of hardware with revision knee replacement. I once again reviewed the technical details and discussed risk to include bleeding, infection, pain, stiffness, damage nerves and vessels, damage to muscle and tendons, fracture, blood clot, loosening, need for repeat procedures. Despite these risk, she elects to proceed. aMdi Patel MD FAAOS FAAHKS PFSH All Active Problems Mechanical loosening of internal right knee prosthetic joint (Acute) Arthrofibrosis of knee joint (Acute) RIGHT TKR Status post arthroscopic synovectomy: 03/21/2024 Sacroiliac joint dysfunction of right side (Chronic) Spondylosis of lumbar region without myelopathy or radiculopathy (Chronic) Spondylosis of lumbar region without myelopathy or radiculopathy (Acute) Medical History Colon cancer Psychophysiologic insomnia Osteoporosis Nicotine dependence quit on 02/09/24 Idiopathic osteoarthritis Hyperlipidemia Alopecia GERD (gastroesophageal reflux disease) Chronic pain syndrome Hx of pneumothorax Overweight (BMI 25.0-29.9) Tobacco abuse Pain of right hip joint Breast cancer Lumbosacral spondylosis Depression Chronic insomnia Dyslipidemia Cervical spondylosis Primary osteoarthritis Folliculitis of perineum Lateral epicondylitis, right elbow Surgical History Mass of anus Excision of anal canal mass 12/01/20 - pt is unaware this was an excision; thought it was biopsy History of total right knee replacement (TKR) followed ORIF of right distal femur radiation Total replacement of hip Left Hemiarthroplasty 2006 Left AG 2012 Rotator Cuff Repair Bilateral Abdominal hysterectomy Breast, Lumpectomy Bilateral (Right first and more significant) Family History Mother Pneumonia Father Heart disease Other Diabetes Essential hypertension Social History Smoking/Tobacco Use Status: Former Tobacco Use Quit Date: 02/09/24 Smoking risk assessment performed?: Yes Alcohol Intake: never Drug use: Never Substance use type: does not use Housing: house Do you feel safe in your relationship?: Yes Meds Allergies and Home Medications Allergies Allergy/AdvReac Type Severity Reaction Status Date / Time Penicillins Allergy Intermediate Hives Verified 08/31/24 09:09 meperidine Allergy Unknown vomiting Verified 08/31/24 09:09 venlafaxine (From Effexor) Allergy Unknown vomiting Verified 08/31/24 09:09 Home Medications ?Medication ?Instructions ?Recorded ?Confirmed ?Type atorvastatin 80 mg tablet 80 mg PO DAILY 06/15/22 08/31/24 History diclofenac sodium 1 % topical gel 2 g topical TID 06/15/22 08/03/24 History (Voltaren Arthritis Pain) trazodone 100 mg tablet 200 mg PO DAILY 06/15/22 08/31/24 History cholecalciferol (vitamin D3) 50 50 mcg PO DAILY 03/20/24 08/31/24 History mcg (2,000 unit) capsule lisinopril 10 mg tablet 10 mg PO DAILY 03/20/24 08/31/24 History acetaminophen 500 mg tablet 1,000 mg (2 x 500 mg) PO TID #90 03/21/24 08/03/24 Rx tabs ibuprofen 600 mg tablet 600 mg PO TID PRN pain #90 tabs 03/21/24 08/31/24 Rx sertraline 25 mg tablet 50 mg PO DAILY 07/23/24 08/31/24 History acetaminophen 500 mg tablet 1,000 mg (2 x 500 mg) PO Q8H PRN 08/31/24 Rx pain #90 tabs aspirin 81 mg tablet,delayed 81 mg PO BID 30 days #60 tabs 08/31/24 Rx release celecoxib 200 mg capsule (Celebrex) 200 mg PO BID PRN #60 caps 08/31/24 Rx dexamethasone 4 mg tablet 4 mg PO DAILY #2 tabs 08/31/24 Rx docusate sodium 100 mg capsule 100 mg PO BID #30 caps 08/31/24 Rx (Colace) gabapentin 300 mg capsule 300 mg PO QHS #14 caps 08/31/24 Rx oxycodone 5 mg tablet 5 mg PO Q4H PRN #18 tabs 08/31/24 Rx pantoprazole 40 mg tablet,delayed 40 mg PO DAILY 14 days #14 tabs 08/31/24 Rx release Results Labs 09/01/24 06:16 09/01/24 06:16
--- NOTE | 2024-08-31 11:02 | W.ANESNERVE ---
Nerve Block Single Injection Procedure Date and Time Date Performed: 08/31/24 Procedure Start: 10:52 Location Where Procedure Performed Procedure Location: Day Surgery Unit Reason Performed: Postoperative Analgesia Requesting Provider: Madi Patel Timeout Performed Timeout Performed: Yes Monitoring Used ECG, Blood Pressure, SpO2 and See EMR for corresponding vital signs Sterility Sterility: Hand Hygiene, Surgical Cap, Surgical Mask, Sterile Gloves, Sterile Drape/Sheet and Chlorhexidine Sedation Given During Procedure Sedation Given (Indicate Dose Given): Versed IV Dose:: 2 mg Patient Mental Status Patient Mental Status: Sedate with meaningful communication Nerve Block 1st Nerve Block: Laterality: Right Block Type: Adductor Canal Ultrasound Image Saved?: Yes Needle / Catheter Used: 100mm SonoPlex II Local Anesthetic Bolus (Indicate Dose Given): Lidocaine used for local infiltration of skin, Injected in 3-5ml increments after negative blood aspiration and Bupivacaine 0.25% Dose:: 15 ml Additives (Indicate Dose Given): None Ultrasound: Sterile probe cover and gel used Nerve Stimulator: Supplement to Ultrasound use and No twitch or parasthesia noted < 0.5 mA Paresthesia: None Procedure Tolerated: No Complications and Patient tolerated well Procedure Outcome: Successful Performed By: Chen Rodney
--- NOTE | 2024-08-31 11:15 | DI.RAD_ITS ---
Exam(s) XR KNEE RT 1V EXAM: XR KNEE RT 1V CLINICAL HISTORY: RIGHT KNEE PAINFUL LOOSENING HARDWARE. TECHNIQUE: 2D digital imaging was performed. COMPARISON: No exams were available for comparison FINDINGS: Fluoroscopy was provided during right knee orthopedic procedure. See procedure report for details. Total fluoroscopy time 26 seconds IMPRESSION: Radiation exposure index/cumulative dose:rogers Sharma=2.57 mGy DATA REPOSITORY: RADIATION DOSE DELIVERED:
[2024-08-31] MEDS: ceFAZolin 2 GM/50 ML BAG IVPB (12:09)
[2024-08-31] MEDS: TRANEXAMIC ACID/SOD. CHL. 1,000 MG/100 ML BAG 600 MG IVPB (12:23)
--- NOTE | 2024-08-31 17:09 | W.PM.OP ---
Operative Note Operative Note PRE-OP DIAGNOSIS: Painful Right Knee Replacement, Arthrofibrosis POST-OP DIAGNOSIS: same PROCEDURE: Revision Total Knee Replacement - RIGHT Removal of Hardware through separate incision - RIGHT FEMUR SURGEON: Madi Patel MULTICULTURAL INTERNSHIP: Hayley Machado ANESTHESIA TYPE: Spinal Refer to Anesthesia Record ESTIMATED BLOOD LOSS: 200 PATHOLOGY: none sent COMPLICATIONS: None Patient was transported to: PACU Patient's condition: stable Implants: TIBIA: Depuy Attune Revision Cemented Tibial Tray, Size 4 - [id number] Cemented Tibial Stem - Cementless Cone, Medium FEMUR: Depuy Attune Revision CRS Femoral Component, Size 5 - [id number] Cementless Femoral Stem - Cementless Sleeve, 40mm - 8mm Posterior - Medial and Lateral - 4mm Distal - Medial and Lateral POLY: Depuy Attune CRS Rotating Platform, 5x14mm Indications: I have seen Simran in clinic for symptoms of ongoing knee pain. She had a cementless knee replacement performed at [facility] about almost 20 years ago but suffered a fall about 3 years ago which resulted in fracture of the distal femur adjacent to the component. She had surgery with a long plate which eventually want to heal. However, since that time she has had significant restriction of motion as well as pain. Bone scan and CT scan were suggestive of loosening, primarily of the femoral component. I discussed the technical details of a revision knee replacement. I explained the risks of the procedure to include, but not limited to, bleeding, infection, pain, stiffness, fracture, damage to nerves and vessels, damage to muscles and tendons, loosening, need for repeat procedure, blood clot and cardiopulmonary demise. Despite these risks, Simran elected to proceed. Findings: The femoral sideplate had to be removed for access to the knee. The bone directly underneath the implant, particularly of the femur, was quite soft. There were some areas of complete loss of ingrowth. However, there were other portions more centrally which seem to have good ingrowth still. The bone adjacent to the implant was quite soft. Revision knee arthroplasty was performed. Procedure Description: Simran was greeted in the preoperative holding area where the correct side was identified and marked. The consent was reviewed with the patient and signed. The history and physical was updated. All questions were answered. Preoperative medications were administered: Acetaminophen 1000mg, Celebrex 400mg, and Gabapentin 300mg. An adductor canal block was then administered by the anesthesia team in the DSU. Simran was taken back to the operating room. A spinal anesthestic was then administered. The patient was placed into the supine position on the operating room table. A nonsterile tourniquet was placed high onto the leg. Posts were placed for positioning during the procedure. All bony prominences were well padded. Prophylactic antibiotics in the form of Cefazolin were administered. 1g of Tranxemic Acid was given intravenously within 30 minutes of incision. The right leg was then prepped with Chloraprep and draped in a standard fashion with impervious stockinette, allowing for a window at the lateral thigh towards the hip. A second prep with Chloraprep was performed prior to application of Iodine impregnated skin protection. A timeout to confirm correct identity, side and site, procedure, allergies, anesthesia, and medical concerns was performed. With the knee in some flexion, the previous midline incision was made overlying the knee. Full thickness skin flaps were raised once the extensor mechanism was encountered. These were raised medially and laterally in a full thickness fashion. Any bleeding was controlled with electrocautery. Once the extensor mechanism was fully exposed, a medial parapatellar arthrotomy was performed in a flexed position. All bleeding from the arthrotomy and the geniculate arteries was coagulated. An aggressive complete synovectomy was then performed superiorly, medially, and laterally. Scarring from the fat pad and a portion of the fat pad was removed as well. The knee was then flexed up and the previous polyethylene was removed. The femoral plate was quite prominent anteriorly and distally. Therefore I did make a window in the capsule and access the plate from within the joint. I was able to expose the distal and the plate and remove the screws from within the joint. I extended the incision proximally and was able to move his second screw in the metaphysis of the femur from within the joint. Next the attention was turned removal of the remainder of the plate. A lateral based incision was made about the proximal?lateral thigh, utilizing fluoroscopy for targeting. This incision was made longitudinally, through the skin, down to the IT band. The incision was taken through the IT band as well as the vastus lateralis fascia. The vastus lateralis was then split in line with its fibers. This then exposed the plate and the remainder screws were removed. These were able to be removed without difficulty. Once this was done a castro elevator was ran under the underside of the plate against the femur to free it up from the femur. The plate was then removed. Removal of the plate there was a portion of some muscle which seem to come with the plate, likely from the undersurface of the vastus lateralis. The proximal?lateral thigh wound was then closed with a running #0 Vicryl in the vastus lateralis fascia. The IT band was closed with running #1 suture. Deep tissues were closed with 0 and 2-0 Vicryl. This wound area was also injected with a mixture of ropivacaine, epinephrine, clonidine, and ketorolac. Attention was then turned to removal of the previous implants. Starting with the femur the interface between the bone and the implant was identified. Utilizing flexible osteotomes I went around the entirety of the femoral component to remove any remaining attachments of the component to the underlying bone. The bone was incredibly soft in this area. The osteotomes sank into the bone. There were areas that seem to be attached but the bone quality was incredibly soft. This was done sequentially in a stepwise fashion throughout. Then utilizing a bone tamp on the end of the implant as well as anteriorly, was able to remove the femoral component with minimal bone loss except the slight amount centrally and around the legs. The bone and release this was inspected. Then, attention was turned to the tibia. Once again, utilizing a set of flexible osteotomes I worked on the tibial component from the underlying bone. Much like the femur, the bone was very soft. It took minimal effort to advance the ostium through the bone against the metal. Once it was felt the component was freed, utilizing a bone tamp from under the lip of the tibia I was able to remove the tibial component. Once again, this was inspected and showed no significant signs of bone loss except adjacent to the keel. There was a small chip fracture or missing piece of posterior tibia centrally. Is unsure if this was made by the Saúl behind the proximal tibia or from the removal of the implant. Did not propagate nor resulted unstable lateral medial tibial condyles. A posterior synovectomy was also performed there was better visualization. Any remnant inflamed synovium and necrotic tissue was debrided fully. Starting with the tibia, the tibial canal was reamed by hand. This was taken up until there is adequate cortical engagement. The reamer was left in place, taken down to an appropriate depth based on the planned construct. This appeared to have appropriate positioning. This was done up to a size 14mm. The proximal aspect of the tibia was then cut to a planar surface. Peripheral soft tissues were protected with appropriate retractors. The trial component was placed. The tibial tray was rotated approximately to the medial one third of the tibial tubercle and locked into position. Attention was turned to the femur where the femoral canal was reamed by hand as well. This was ensured to be starting in a central slightly posterior position to avoid anterior notching. This was taken up to a size 16mm reamer. Initial plan was to distalize the femur and this was accounted for during the reaming and broaching process for appropriate joint line. A freshening cut was made over the distal aspect of the femur removing no more than 2 mm of bone for a fresh, flat distal femur surface. Broaching was then performed by hand. This was taken up until there was rotational and axial control of the broach. This was left in position and the distal cutting device was attached. Extension and flexion gaps were then assessed. Rotation of the femoral component was set with the tibia in 90 degrees. The posterior cuts were then assessed. This showed 4 mm augments. The anterior and posterior chamfers were cut. The central portion of the jig was then removed and the notch was cut. Trial implants were then inserted. The knee was taken through range of motion. This showed stability with a 14mm polyethylene insert in extension yet it was still slightly loose in flexion. Therefore, I went up to size 5 femur. This was trialed off the broach and showed much better stability with the flexion gap. I then had to go up to an 8 mm augment posteriorly for both the medial and the lateral side. Then, the trial femur was removed. The distal aspect of the femur was reamed with an 18 mm reamer to account for the size of the femoral boss. I also prepared the tibia for a cone, utilizing the medium sized reamer. The medium sized cone fit in appropriately. The tibia was punched to make room for the keel. The trial tibial implant was removed. A cement restrictor was also placed into the tibial canal. The cut surfaces of the femur and the tibia as well as the canals were then irrigated with pulse lavage. The final components, except for the polyethylene were opened on the back table. The augments and stems and sleeves were assembled according manufactures instructions. The periosteal and capsular tissues, especially posteriorly, around the knee were then systematically injected with a periarticular cocktail consisting of 246mg of Ropivacaine, 0.5mg of Epinephrine, 0.08mg of Clonidine, and 30mg of Ketorolac, diluted to 100cc. The knee was thoroughly irrigated with a pulse lavage and dried. On the back table, the implants were opened. They were assembled matching the rotation and position of the trial implants on the final components. They are prepared according to medical laboratory technical officer recommendations. Now with the implants opened, the cement was mixed. 3 batches of medium viscosity cement were prepared with vacuum assistance. After the cement was ready it was placed on to the back side of the tibial component. Similarly, cement was placed onto the backside of the femoral component. Cement was then injected into the tibial canal and along the cut surface of the tibia. The tibial component was then inserted. Once it appeared to be appropriately oriented, it was impacted into position. The seem to rest completely on the cut tibial surface. Excess cement was removed. It was ensured to be down against the cut surface. Next, cement was manually impacted onto the cut surface of the distal femur. The femoral component was then inserted utilizing the femoral component for rotational control. This was impacted into position. Excess cement was removed. The trial polyethylene was then inserted and the leg was brought out into full extension for the duration of the cement curing process, approximately 18min. During this process attention was turned to the gutters of the knee and for all interfaces for any excess cement. While the cement was hardening, the knee was irrigated with Surgiphor chlorhexadine solution. This was allowed to sit in the knee for 3 minutes and then it was thoroughly irrigated with saline. After the cement had finally cured, approximately 18min, the knee was taken through range of motion. A size 14mm polyethylene component provided the best range of motion and stability with less than 2mm gapping with medial and lateral stress and full extension without significant hyperextension. The patella was tracking with a no-thumbs technique. The trial poly was removed and once again the knee was checked for any loose, excess, or errant cement. The poly component was then inserted nto position after cleaning and drying the tibial tray. The capsule was then reapproximated with a #2 FiberWire and a #1 Vicryl at multiple locations. The capsule was finally closed with a No. 2 Stratafix, barbed suture. Deep tissues were then reapproximated with 0 Vicryl and 2-0 Vicryl. The skin was closed with a running 3-0 Monocryl in a subcuticular fashion. The proximal?lateral thigh wound was also closed with 3-0 Monocryl in a subcuticular fashion with skin glue. A Mepilex silver dressing was applied to both the lateral thigh wound and the midline knee wound along with a [id number] NELIDA wrap. A CryoCuff was applied. Simran was transferred to the hospital bed without difficulty an suffering no apparent complication. Simran has a good prognosis. Physical therapy will start today and without restrictions, weight-bearing as tolerated. Aspirin 81mg BID will be used for DVT prophylaxis. Date of Procedure: 08/31/24
[2024-08-31] MEDS: ePHEDrine 25 MG/5 ML Syringe IVP (17:35)
--- NOTE | 2024-08-31 17:51 | W.ANESPOSTOP ---
Postoperative Evaluation Date, Time and Location Date Performed: 08/31/24 Time Performed: 17:51 Patient Location: PACU Vital Signs Most Recent Imported Vital Signs: Most Recent Vital Signs Temp Pulse Resp BP Pulse Ox 36.5 C 69 14 104/60 94 08/31/24 17:41 08/31/24 17:41 08/31/24 17:41 08/31/24 17:41 08/31/24 17:41 Pain Score Most Recent Pain Score: Most Recent Pain Score Pain Level 0 08/31/24 17:41 Assessment Mental Status: Awake (Alert & Oriented to Patient Baseline) Airway and Respiratory Function: Patent airway with normal (patient baseline) respiratory exam Cardiovascular Function: Hemodynamically Stable Hydration Status: Adequately Hydrated Nausea & Vomiting: No Nausea or Vomiting Pain: Pt. Denies Any Pain (spinal still waning) Peripheral Nerve Block: Regional nerve block not resolved at time of post operative discharge
--- NOTE | 2024-08-31 18:28 | W.PC.ACHO ---
Registration Status: Primary Language: Preferred Language: Medical / Surgical History (Last Reviewed 08/31/24 @ 09:02 by Cielo Garcia RN) Colon cancer Psychophysiologic insomnia Osteoporosis Nicotine dependence Idiopathic osteoarthritis Hyperlipidemia Alopecia GERD (gastroesophageal reflux disease) Chronic pain syndrome Hx of pneumothorax Overweight (BMI 25.0-29.9) Tobacco abuse Pain of right hip joint Breast cancer Lumbosacral spondylosis Depression Chronic insomnia Dyslipidemia Cervical spondylosis Primary osteoarthritis Folliculitis of perineum Lateral epicondylitis, right elbow (Last Reviewed 08/31/24 @ 09:02 by Cielo Garcia RN) Mass of anus History of total right knee replacement (TKR) radiation Total replacement of hip Rotator Cuff Repair Abdominal hysterectomy Breast, Lumpectomy Most Recent Vital Signs Temperature 36.6 C 08/31/24 18:13 Temperature Source Skin 08/31/24 10:50 Pulse 68 08/31/24 18:13 Pulse Rhythm Regular 08/31/24 18:13 Pulse 68 08/31/24 17:41 Respiratory Rate 16 08/31/24 18:13 Respiratory Effort Normal 08/31/24 18:13 Respiratory Depth Normal 08/31/24 18:13 Respiratory Pattern Normal 08/31/24 18:13 Blood Pressure 93/55 L 08/31/24 18:13 Blood Pressure Mean 73 08/31/24 17:41 Blood Pressure Position Sitting 08/31/24 10:50 Pulse Oximetry 95 08/31/24 18:13 Respiratory End-tidal CO2 33 08/31/24 17:41 Oxygen Delivery Method Room Air 08/31/24 18:13 Oxygen Flow Rate 0 08/31/24 18:13 Pain Level 0 08/31/24 18:13 Comment 10:56 block completed by Davis QUICK, assisted by Jeyson GRANADOS. No issues observed. Pt quiet during procedure and visibly experiencing the effects of versed. Pt communicating appropriately with staff when questioned after block procedure. Post VS taken. Pt denies metallic taste in mouth, ringing in ears, tingling, pain or feeling unusual in any way. Pt connected to main front desk representative. Pt waiting to transfer to the OR. 12:07pm Pt transferred to the OR by Angelica GRANADOS. 08/31/24 10:50 Allergies Penicillins Allergy (Intermediate, Verified 08/31/24 09:09) Hives meperidine Allergy (Unknown, Verified 08/31/24 09:09) vomiting venlafaxine (From Effexor) Allergy (Unknown, Verified 08/31/24 09:09) vomiting Active Medications Generic Name Dose Route Start Last Admin Trade Name Malaika PRN Reason Stop Dose Admin Ringer's Solution 1,000 mls @ 80 mls/hr 08/31/24 06:00 08/31/24 17:55 IV 08/31/24 23:59 80 mls/hr INFUSION DARRICK Infusion IV IV Catheter Type [Right Hand] Saline Lock IV Catheter Gauge [Right Hand] 18 Diet Orders Category Date Time Status Regular/Normal [DIET] Nutrition 08/31/24 Lunch Active Intake and Output - 24 Hour Total 06/12/24 09:06 thru 08/31/24 18:27 Intake Total 1550 Output Total 600 Balance 950 Weight 65.4 kg Intake: IV 1550 Output: Urine 600 Other: Urine Color Yellow Urine Appearance Clear Emesis Description None Urinary Catheter Urinary Catheter Date of 08/31/24 Insertion [Urethral (Jewell)] Urinary Catheter Date of 08/31/24 Insertion [Urethral (Jewell)] Time of insertion [Urethral ( 12:29 Jewell)] Time of insertion [Urethral ( 12:29 Jewell)] Falls Risk Assessment History of Falls No History 08/31/24 18:13 Contributing Factors Impairments 08/31/24 18:13 Ambulatory Aids Uses ambulatory device 08/31/24 18:13 Tubes/Lines With any additional score 08/31/24 18:13 Gait Evaluation W/any additional score 08/31/24 18:13 Cognition No cognitive impairment 08/31/24 18:13 Fall Total Score 58 08/31/24 18:13 Level of Risk High Risk 08/31/24 18:13 Problems (Last Reviewed 08/31/24 @ 09:02 by Cielo Garcia RN) Mechanical loosening of internal right knee prosthetic joint (Acute) Arthrofibrosis of knee joint (Acute) v v v v v v v v v Sending and/or Receiving Nurses: Please use comment section below to note any information pertinent to the patient hand-off not included above. Information / Comments: pt arrives to 206 via stretcher. Daughter with pt Report received from: Yocasta [employer]
[2024-08-31] MEDS: Normal Saline Flush 10 ML SYR IV (20:27)
[2024-08-31] MEDS: Celecoxib 200 MG CAP PO (20:28)
[2024-08-31] MEDS: Aspirin E.C. 81 MG TABEC PO (20:28)
[2024-08-31] MEDS: ceFAZolin 1 GM/50 ML BAG IVPB (20:28)
[2024-08-31] MEDS: Lactated Ringers 1,000 ML 1000 ML IV (21:15)
[2024-08-31] MEDS: traZODone 50 MG TAB 200 MG PO (22:27)
[2024-09-01 03:20] VITALS: BP 99/60; PULSE 87; RESP 17; TEMP 35.8; O2SAT 91
[2024-09-01] MEDS: ceFAZolin 1 GM/50 ML BAG IVPB (03:58)
[2024-09-01] MEDS: Normal Saline Flush 10 ML SYR IV (03:59)
[2024-09-01 06:40] LABS: HCT 27.2 % (36.0-46.0); HGB 8.7 g/dL (11.2-15.7); MCH 30.3 pg (27.0-33.0); MCV 95 fL (80-95); MPV 9.4 fL (8.0-11.0); Platelet Count 211 10^3/uL (130-400); RBC 2.87 10^6/uL (3.93-5.22); RDW 12.9 % (11.7-14.6); RDW-SD 44.3 fL; WBC 10.71 10^3/uL (4.4-10.8)
[2024-09-01 06:42] LABS: Anion Gap 5.7 mmol/L (3-11); BUN 14 mg/dL (7-18); CO2 27.3 mmol/L (21.0-32.0); CREATININE 0.9 mg/dL (0.55-1.02); Calcium 8.2 mg/dL (8.5-10.1); Chloride 110 mmol/L (98-107); Glucose 128 mg/dL (74-106); Potassium 4.2 mmol/L (3.5-5.1); Sodium 143 mmol/L (136-145)
[2024-09-01 07:37] VITALS: BP 94/60; PULSE 79; RESP 14; TEMP 36.5; O2SAT 93
--- NOTE | 2024-09-01 08:30 | PT.INIE ---
Date of service: 09/01/24 Time of Service: 07:58 PT Notes Visit Reasons: Loosening of right TKA Inpatient Physical Therapy Evaluation I certify the need for these services as being medically necessary and skilled as furnished under this plan of treatment while under my care. Please sign and return within 14 days if you agree with the plan of care listed below.? Thank you for this referral! ? Referring Physician? Date Referring Doctor:? Hayley Machado PT Orders: PT CONSULT for s/p ortho surgery Precautions: WBAT Right LE Patient Profile/Admitting Diagnosis:? The patient is a 68 yo female adm on 08/31/24 for a scheduled revision of right TKA with hardware removal; she is status post right TKA at [facility] in 2006. Patient has been complicated by distal femur periprosthetic fracture after fall in 2021. Patient had mechanical loosening of internal right knee prosthetic joint with arthrofibrosis of her knee joint Past Medical History: Mechanical loosening of internal right knee prosthetic joint (Acute) Arthrofibrosis of knee joint (Acute) RIGHT TKR Status post arthroscopic synovectomy: 03/21/2024Sacroiliac joint dysfunction of right side (Chronic) Spondylosis of lumbar region without myelopathy or radiculopathy (Chronic) Spondylosis of lumbar region without myelopathy or radiculopathy (Acute) Medical History Colon cancer Psychophysiologic insomnia Osteoporosis Nicotine dependence quit on 02/09/24Idiopathic osteoarthritis Hyperlipidemia Alopecia GERD (gastroesophageal reflux disease) Chronic pain syndrome Hx of pneumothorax Overweight (BMI 25.0-29.9) Tobacco abuse Pain of right hip joint Breast cancer Lumbosacral spondylosis Depression Chronic insomnia Dyslipidemia Cervical spondylosis Primary osteoarthritis Folliculitis of perineum Lateral epicondylitis, right elbow Surgical History Mass of anus Excision of anal canal mass 12/01/20 - pt is unaware this was an excision; thought it was biopsyHistory of total right knee replacement (TKR) followed ORIF of right distal femurradiation Total replacement of hip Left Hemiarthroplasty 2007 Left AG 2013Rotator Cuff Repair BilateralAbdominal hysterectomy Breast, Lumpectomy Bilateral (Right first and more significant) Former Tobacco Use Quit Date: 02/09/24 Medications: See chart Social History/Home Situation: Lives in [place] with her daughter. One level home with 1 step to enter. Has a walker at home. Does not have a commode or tub bench but does not feel she needs one. Daughter will be availabe to assist. Subjective: Reports her daughter will be coming to the hospital soon. Objective: Incontinent of stool. Patient able to provide own pericare with set up in sitting and standing in bathroom. Sit to/from toilet with cuing for use of bars cga 2x. Mental Status: Patient is alert and oriented. Pain: No pain at rest. Pain in quad, knee and hamstrings 0/10 at rest, up to 4-5/10 with movement. Vital Signs: Taken by [employer] 737: 94/60, 79, 93%. No c/o dizziness during today's session ROM/Strength: Upper extremities: WNL Lower extremities: Able to perform active SLR, heel slides with right LE Sensation: No c/o numbness or tingling Soft tissue/edema: Yunior wrap in place. RN to assist with ice at end of session. RN removed IV with some bleeding; dressing applied Bed Mobility: Supine to sit supervision Transfers: Sit to stand close supervision. Stand to sit with close supervision. Gait: Ambulated 30, 125 feet with rolling walker with near step to pattern close supervision without loss of balanc.e Balance: Supervision for standing balance. [facility] AM-PAC 6 clicks Basic Mobility Inpatient Short Form: Raw Score:18? CMS Score:46.58% Informed Consent/Education:? Patient instructed in purpose of PT consult and plan of care and is agreeable Treatment: Access Code: [email or web address] URL: [email or web address] Date: 09/01/2024 Prepared by: Judi Vera Program Notes Work on bending your knee for 1 minute every hour and straightening your knee for 1 minute every hour Exercises - Supine Ankle Pumps - 14 x daily - 10 reps - Supine Quadricep Sets - 14 x daily - 10 reps - Supine Heel Slides - 3 x daily - 10 reps - Supine Hip Abduction AROM - 3 x daily - 10 reps - Supine Straight Leg Raise - 3 x daily - 10 reps - Seated Long Arc Quad - 3 x daily - 10 reps Assessment:? Patient is a?68 yo female adm on 08/31/24 for a scheduled revision of right TKA with hardware remova.? Patient presents with right LE pain, decreased strength, decreased functional mobility, decreased balance and difficulty with ambulation. The patient is able to mobilize as needed for discharge to home with her daughter to assist. All equipment needs met. Patient is assessed as:? Low 83818?? History: previous surgery Examination: see above Presentation: Stable and uncomplicated? Decision Making:? Low (0 history, 1-2 exam, stable/predictable, easy 20) Physical Therapy Goals: 1 visit Able to get in/out of bed with supervision only: met Able to perform sit to/from stand with supervision:met Able to walk 100 feet with rolling walker with supervision only: met Equipment needs met: met Independent with home exercise program: met Plan of Care/Treatment Plan:1 visit. Discharge from PT at this time. No additional inpatient needs. DISCHARGE RECOMMENDATIONS: Has walker. Declines need for additional equipment. Has HEP sheet for home. Informed consent Prior to the start and throughout the course of the examination and treatment, patient was made aware of the specifics and purpose of the physical assessment and treatment procedures. Appropriate draping procedures were utilized to protect modesty where applicable. Billing Charges: Treatment Units Time Duration Manual Therapy(63922) Hands-on techniques to modulate pain increase joint range of motion reduce or eliminate soft tissue swelling, inflammation, or restriction facilitate relaxation and improve contractile and non-contractile tissue extensibility ? ? Therapeutic Procedures (88537) Instruction in therapeutic exercises to develop strength and endurance, range of motion and flexibility. HEP instruction and review: Provided skilled instruction in proper exercise performance: Provided skilled manual cues to facilitate proper muscle recruitment and/or movement pattern 1 12 Neurological Re-Education(56475) To improve balance, coordination, kinesthetic and proprioceptive sensations. ? ? Ultrasound(60539) To promote healing. ? ? Gait Training(60533) ? ? Therapeutic Activity(82665) Instruction in dynamic activities with one on one patient contact by the provider to improve functional performance as follows: 1 ? 12 ? Self Care Training(74746) ? ? E-Stim (Attended)(51018) ? ? Low IE(07526) 1 5 Mod IE(98957) ? ? High IE(14768) ? ? Time Coded Treatment Time ? 25 Total Treatment Time ? 29
[2024-09-01] MEDS: Acetaminophen 500 MG TAB 1000 MG PO (08:31)
[2024-09-01] MEDS: Sertraline 50 MG TAB PO (08:31)
[2024-09-01] MEDS: Dexamethasone 4 MG TAB PO (08:31)
[2024-09-01] MEDS: Celecoxib 200 MG CAP PO (08:31)
[2024-09-01] MEDS: Pantoprazole 40 MG TABCR PO (08:32)
[2024-09-01] MEDS: Aspirin E.C. 81 MG TABEC PO (08:32)
--- NOTE | 2024-09-01 09:25 | W.PM.DS.N ---
Date of service: 09/01/24 Time of Service: 10:10 Discharge Plan Disposition Patient Disposition: Home W/Home Health Services Condition: Good Discharge Details Reason For Visit: Loosening of right TKA Admit Date/Time: 08/31/24 08:26 Admit Provider: Madi Patel Attending Provider: Madi Patel Primary Care Provider: ANA BLACK Hospital Course Hospital Course: Patient was admitted to the medical/surgical floor following the procedure. The surgery was tolerated well without any notable medical, surgical, or anesthetic complications. Mobilization began postoperatively. She was voiding spontaneously. Vitals were stable although relative low blood pressure with acute blood loss anemia. However, she was stable with mobilization. Physical therapy worked with the patient and was cleared for discharge home. No acute medical issues. Pain was controlled on oral regimen. Home Meds and New Rx's Prescriptions: New celecoxib [Celebrex] 200 mg capsule 200 mg PO BID PRNQty: 60 0RF Rx Instructions: Take one tablet twice daily for pain and inflammation aspirin 81 mg tablet,delayed release (DR/EC) 81 mg PO BID 30 Days Qty: 60 0RF acetaminophen 500 mg tablet 1,000 mg PO Q8H PRN Qty: 90 0RF Rx Instructions: Take two tablets up to every 8 hours as needed for pain pantoprazole 40 mg tablet,delayed release (DR/EC) 40 mg PO DAILY 14 Days Qty: 14 0RF dexamethasone 4 mg tablet 4 mg PO DAILY Qty: 2 0RF Rx Instructions: Take one tablet once daily for two days docusate sodium [Colace] 100 mg capsule 100 mg PO BID Qty: 30 0RF gabapentin 300 mg capsule 300 mg PO QHS Qty: 14 0RF Rx Instructions: Take one tablet at bedtime oxycodone 5 mg tablet 5 mg PO Q4H PRNQty: 18 0RF Rx Instructions: Take one tablet up to every 4 hours as needed for severe postoperative pain No Action atorvastatin 80 mg Tablet 80 mg PO DAILY trazodone 100 mg Tablet 200 mg PO DAILY diclofenac sodium [Voltaren Arthritis Pain] 1 % Gel 2 g TOPICAL TID lisinopril 10 mg tablet 10 mg PO DAILY Patient Comments: TAKE 1 TABLET BY MOUTH ONCE DAILY cholecalciferol (vitamin D3) 50 mcg (2,000 unit) capsule 50 mcg PO DAILY Patient Comments: TAKE 1 CAPSULE BY MOUTH ONCE DAILY acetaminophen 500 mg tablet 1,000 mg PO TID Qty: 90 0RF ibuprofen 600 mg tablet 600 mg PO TID PRN (Reason: pain) Qty: 90 0RF sertraline 25 mg tablet 50 mg PO DAILY Patient Comments: TAKE 1 TABLET BY MOUTH ONCE DAILY Discharge Instructions Additional Instructions: Total Knee Revision Discharge Instructions Activity: The most important activity is to walk and to work on gentle motion (both flexion and extension). You should try to take short walks a few times a day. It is important that when resting you work on keeping the knee straight. Avoid putting a pillow behind the knee as this will encourage flexion. Work on range of motion exercises as provided by Physical Therapy. - Start outpatient physical therapy within 2 weeks. - You should wear the VAISHALI hose on both legs for 2 weeks. You may remove these at night. You may also use any compression sock in place of the VAISHALI hose. - Utilize [employer] to review exercises, see videos on exercises and obtain basic information pertaining to your surgery and your recovery. Dressing: Remove the Yunior wrap by 2 days after your surgery and put on the VAISHALI stocking given to you from the hospital. Keep the surgical dressing (underneath the YUNIOR wrap) in place for at least one week. After the first week it may be removed and replaced with light gauze and tape or nothing. The wound and dressing may get wet after 3 days but avoid soaking the dressing or otherwise it will need to be changed. Many people prefer covering the dressing with cling wrap (saran wrap) to minimize it from getting soaked. If it gets wet, just pat dry. If it starts to peel off then it will need to be changed. Medications: - You should take Tylenol and anti-inflammatory Celebrex as your primary pain control medications. If the Celebrex is too expensive or not covered, please call the office for another alternative (Advil/Ibuprofen or Naproxen/Aleve) - You have been prescribed a stronger pain medication Oxycodone for breakthrough pain, take as needed as prescribed. - You have also been prescribed a stomach acid reduction agent Pantoprozole to help reduce stomach acid and reflux. - You have been prescribed Gabapentin to take at night for restlessness and nerve pain. - You will be taking Aspirin 81mg twice a day for DVT prevention unless instructed otherwise. - You have also been prescribed Decadron to take to control post-operative nausea and pain. You will start this tomorrow. - If you have constipation you should take Colace (which has been prescribed) or Miralax (which is available [id number]). It takes most people 3-4 days to have a bowel movement. Follow-up: 2 weeks If you have any acute concerns or questions, please do not hesitate to contact the office at [phone]. You may contact Dr. Patel with any questions after hours through the hospital at [phone] or on his cell phone at [phone]. 1. Encounter Date and Reason I certify that Simran Camargo was seen by Madi Patel MD on 09/01/24 and that I had a [id number] encounter with this patient that meets the physician face to face encounter requirements. 2. Clinical Findings Supporting Skilled Need and Homebound Status I certify that home health services are medically necessary, include either intermittent correction and/or physical/speech therapy, and that this patient is homebound in that absences from the home require considerable and taxing effort and are infrequent or of short duration, or are attributable to the need to receive medical care. [X] (a) Attached documentation from encounter provides clinical findings supporting skilled need and homebound status (including what assistance patient requires to leave the home). The encounter with the patient was in whole, or in part, for the following medical condition, which is the primary reason for home health care: Loosening of right TKA Senior Living: Physical Therapy: Simran will benefit from home based physical therapy to address her weakness, stiffness, and gait dysfunction following removal of hardware and complex revision of the right knee. She has no formal restrictions although all weightbearing should be with assistive device until follow-up. Speech Therapy: Homebound: Simran is homebound and unable to leave without significant assistance due to weakness and gait dysfunction 3. Certification and Authentication I certify that I composed the above information based on my clinical judgement relating to this patient's medical condition and, if applicable, clinical findings communicated to me by the NPP or inpatient physician who performed the Home Health Referral. All further orders will be obtained through Dr. Patel Stand Alone Forms: Luzmaria Segovia ([facility]), Nursing Discharge Form Referrals: Madi Patel MD [ [facility] STAFF PHYSICIAN] - 09/13/24 2:45 pm Activity:: Activity as Tolerated Equipment/Supplies:: Walker Diet:: As Tolerated Discharge Orders Discharge Orders: Discharge Order (Routine); Ordered 09/01/24 Ordered By: Madi Patel DS: Summary Time Spent with Patient providing and/or coordinating discharge services: Less than 30 minutes Status at Discharge Functional status at discharge: uses cane/walker Overall status at discharge: patient is progressing back to baseline Mental Status: mental status grossly normal Speech and Movement: speech and movement normal Mood: congruent mood Affect: normal affect Quality:SDOH Health Related Social Needs: No Data to Display Exam Narrative Exam Narrative: Sitting up in the chair. No acute distress. Alert and orient x 3. Right lower extremity dressings clean dry and intact. Generalized swelling. No drainage. She is able to actively extend the right knee to within 5 degrees without a lag. No pain with passive range of motion. Sensation intact to light touch over the deep and superficial peroneal nerve and tibial nerve. Psych Mental Status: mental status grossly normal Speech and Movement: speech and movement normal Mood: congruent mood Affect: normal affect DS: Data Vitals/I&O Vitals and I&O: Vital Signs Temperature 97.5 F L 08/31/24 08:59 Pulse 75 08/31/24 08:59 Pulse Rhythm Regular 08/31/24 08:59 Respiratory Rate 14 08/31/24 08:59 Respiratory Depth Deep 08/31/24 08:59 Blood Pressure 120/77 08/31/24 08:59 Pulse Oximetry 93 08/31/24 08:59 Oxygen Delivery Method Room Air 08/31/24 08:59 Oxygen Flow Rate 0 08/31/24 08:59 Pain Level 4 08/31/24 08:59 Intake & Output 08/30/24 08/30/24 08/31/24 11:59 23:59 11:59 Weight 144 lb 2.917 oz PFSH All Active Problems Mechanical loosening of internal right knee prosthetic joint (Acute) Arthrofibrosis of knee joint (Acute) RIGHT TKR Status post arthroscopic synovectomy: 03/21/2024 Sacroiliac joint dysfunction of right side (Chronic) Spondylosis of lumbar region without myelopathy or radiculopathy (Chronic) Spondylosis of lumbar region without myelopathy or radiculopathy (Acute) Medical History Colon cancer Psychophysiologic insomnia Osteoporosis Nicotine dependence quit on 02/09/24 Idiopathic osteoarthritis Hyperlipidemia Alopecia GERD (gastroesophageal reflux disease) Chronic pain syndrome Hx of pneumothorax Overweight (BMI 25.0-29.9) Tobacco abuse Pain of right hip joint Breast cancer Lumbosacral spondylosis Depression Chronic insomnia Dyslipidemia Cervical spondylosis Primary osteoarthritis Folliculitis of perineum Lateral epicondylitis, right elbow Surgical History Mass of anus Excision of anal canal mass 12/01/20 - pt is unaware this was an excision; thought it was biopsy History of total right knee replacement (TKR) followed ORIF of right distal femur radiation Total replacement of hip Left Hemiarthroplasty 2006 Left AG 2012 Rotator Cuff Repair Bilateral Abdominal hysterectomy Breast, Lumpectomy Bilateral (Right first and more significant) Family History Mother Pneumonia Father Heart disease Other Diabetes Essential hypertension Social History Smoking/Tobacco Use Status: Former Tobacco Use Quit Date: 02/09/24 Smoking risk assessment performed?: Yes Alcohol Intake: never Drug use: Never Substance use type: does not use Housing: house Do you feel safe in your relationship?: Yes Time Spent with Patient Time Spent with Patient: <45 minutes Time was spent: preparing to see the patient(eg.review tests)
--- NOTE | 2024-09-01 13:46 | PDOC.CMPRO ---
Date of service: 09/01/24 Time of Service: 13:46 Care Management Progress Note Progress Note Text Progress Note Text: Simran was admitted on 08/31/24 for a revision of her right total knee replacement. The surgery went well and Simran's post-operative course was uneventful except for some hypotension associated with blood loss anemia. She will be discharged home with new home health services for PT. Discharge Potential Discharge Needs: Surgical F/U Appt Anticipated Barriers to Discharge: None Identified Patient/Family Education Needs: Review discharge instructions, discuss Ask Me Three Transportation: Private vehicle Social Determinants of Health Screening Social Determinants of Health last assessed: 09/01/24 Will the Patient Participate in the Screening?: Yes Do you worry about having a steady place to live?: no Problems where you live: no known problems In the past 12 months, have you had to go without electric, gas, oil or water in your home?: no Have you or anyone in your house had to go without enough food to eat?: no Has lack of transportation kept you from medical appointments or from doing things needed for daily living?: no Has anyone in your life made you feel unsafe or unsupported?: no How hard is it for you to pay for the very basics like food, housing, medical care, and heating? Would you say it is:: Not hard at all Do you want help finding or keeping work or a job?: I do not need or want help If for any reason you need help with day-to-day activities such as bathing, preparing meals, shopping, managing finances, etc., do you get the help you need?: I don?t need any help How often do you feel lonely or isolated from those around you?: Never Do you speak a language other than [place] Citizen at home?: No Does the patient want assistance with any of the above?: No
== END 2024-09-01 11:40 | disposition home health service (06) | DRG 467 ==
LOC: PDS 09:56 → MS 17:49
PROVIDERS: Admitting Provider Student in an Organized Health Care Education/Training Program; PCP Family Medicine; Visit Provider Student in an Organized Health Care Education/Training Program
PROC: 0SPC0JZ Removal of Synthetic Substitute from Right Knee Joint, Open Approach (ICD-10-PCS; CPT 27487; principal; 2024-08-31 11:45)
DX: T84.032A Mechanical loosening of internal right knee prosthetic joint, initial encounter (principal); D62 Acute posthemorrhagic anemia; T84.82XA Fibrosis due to internal orthopedic prosthetic devices, implants and grafts, initial encounter; Z96.651 Presence of right artificial knee joint; M53.3 Sacrococcygeal disorders, not elsewhere classified; M47.816 Spondylosis without myelopathy or radiculopathy, lumbar region; Z85.038 Personal history of other malignant neoplasm of large intestine; Z87.891 Personal history of nicotine dependence; E78.5 Hyperlipidemia, unspecified; M81.0 Age-related osteoporosis without current pathological fracture; F51.04 Psychophysiologic insomnia; K21.9 Gastro-esophageal reflux disease without esophagitis; F32.A Depression, unspecified; Z96.642 Presence of left artificial hip joint; Z85.3 Personal history of malignant neoplasm of breast; Z92.3 Personal history of irradiation; Z79.899 Other long term (current) drug therapy; I95.81 Postprocedural hypotension; G89.18 Other acute postprocedural pain; M25.561 Pain in right knee
CPT/HCPCS: 27487; 36415; 64447; 76000; 80048; 85027; 99223; 73560; C1776; J0665; J0690; J1100; J2250; J2371; J2405; J2704; J8540

== ENCOUNTER → 2024-08-31 10:00 | Outpatient (BNVA) | payer MEDICARE, MEDICAID, SELFPAY | PROVIDERS: PCP Family Medicine; Referring Provider Family Medicine; Visit Provider Student in an Organized Health Care Education/Training Program ==

== ENCOUNTER 2024-09-13 15:59 | Outpatient (CLI) | payer MEDICARE, MEDICAID, SELFPAY ==
--- NOTE | 2024-09-13 14:45 | DI.RAD_ITS ---
Exam(s) XR KNEE RT 1V XR STANDING ALIGNMENT EXAM: XR STANDING ALIGNMENT CLINICAL HISTORY: s/p surgery. TECHNIQUE: 2D digital imaging was performed. Standing AP views were performed from the pelvis throu gh the ankles. COMPARISON: CR XR HIP MIN 2V RT from 02/11/2022 CR XR LS SPINE 2-3 VIEWS from 02/11/2022 CR XR FEMUR 2 VIEWS RIGHT (GENERIC) from 04/07/2022 DX Femur RT from 11/19/2022 CR XR KNEE RT 2V AP,LAT from 08/31/2024 CR XR KNEE RT 1V from 09/13/2024 FINDINGS: BONES: No acute fracture is present. No bony destructive lesion is seen. Leg length discrepancy: No significant overall leg length discrepancy. JOINTS: Knees: Revised right knee prosthesis appears unchanged. No abnormal surrounding bony lucenci es. The left knee joint spaces are maintained. The ankle joints are unremarkable. Hips: Left hip prosthesis is unremarkable. The right hip joint space is maintained. SOFT TISSUE: Normal. IMPRESSION: Revised right knee prosthesis is unremarkable. No significant leg length discrepancy. DATA REPOSITORY: RADIATION DOSE DELIVERED:
== END 2024-09-13 16:00 | disposition home or self-care (01) ==
LOC: DIORS 15:59
PROVIDERS: PCP Family Medicine; Referring Provider Family Medicine; Visit Provider Student in an Organized Health Care Education/Training Program
DX: Z96.651 Presence of right artificial knee joint (principal); Z47.1 Aftercare following joint replacement surgery
CPT/HCPCS: 99024; 73560; 77073

== ENCOUNTER → 2024-10-19 11:05 | Outpatient (BNVA) | payer MEDICARE, MEDICAID, SELFPAY | PROVIDERS: PCP Family Medicine; Referring Provider Family Medicine | DX: Z47.1 Aftercare following joint replacement surgery (principal); Z96.651 Presence of right artificial knee joint | CPT/HCPCS: 99024 ==

== ENCOUNTER → 2024-11-26 09:25 | Outpatient (BNVA) | payer MEDICARE, MEDICAID, SELFPAY | PROVIDERS: PCP Family Medicine; Referring Provider Family Medicine; Visit Provider Student in an Organized Health Care Education/Training Program | DX: Z47.1 Aftercare following joint replacement surgery (principal); Z96.651 Presence of right artificial knee joint | CPT/HCPCS: 99024 ==

== ENCOUNTER → 2025-01-14 10:00 | Outpatient (BNVA) | payer MEDICARE, MEDICAID, SELFPAY | PROVIDERS: PCP Family Medicine; Referring Provider Family Medicine; Visit Provider Physician Assistant | DX: T84.82XA Fibrosis due to internal orthopedic prosthetic devices, implants and grafts, initial encounter (principal) | CPT/HCPCS: 99213 ==

== ENCOUNTER → 2025-03-18 10:56 | Outpatient (BNVA) | payer MEDICARE, MEDICAID, SELFPAY | PROVIDERS: PCP Family Medicine; Referring Provider Family Medicine; Visit Provider Physician Assistant | DX: Z47.1 Aftercare following joint replacement surgery (principal); Z96.651 Presence of right artificial knee joint; T84.82XA Fibrosis due to internal orthopedic prosthetic devices, implants and grafts, initial encounter | CPT/HCPCS: 99213 ==

== ENCOUNTER 2025-05-28 12:36 | Outpatient (CLI) | payer MEDICARE, MEDICAID, SELFPAY ==
[2025-05-28 12:43] VITALS: BP 127/91; PULSE 85; RESP 20; TEMP 37; O2SAT 95
[2025-05-28 13:16] VITALS: PULSE 86; O2SAT 93
[2025-05-28 13:20] VITALS: PULSE 86; O2SAT 95
[2025-05-28 13:30] VITALS: PULSE 89; O2SAT 97
[2025-05-28] MEDS: Bupivacaine 0.5% Pres-Free 10 ML VIAL IJ (13:40)
[2025-05-28] MEDS: Nerve Block Tray 1 EACH MC (13:40)
--- NOTE | 2025-05-28 13:45 | DI.RAD_ITS ---
Exam(s) XR PAIN CLINIC LUMBAR SP 2V EXAM: XR PAIN CLINIC LUMBAR SP 2V CLINICAL HISTORY: DX: Lumbar Spondylosis. TECHNIQUE: Fluoroscopy was provided for the referring physician for guidance with performing pain clinic injection procedure. COMPARISON: No exams were available for comparison FINDINGS: Please see procedure note for details. Fluoro time: 22.9 seconds RADIATION DOSE DELIVERED: rogers Sharma=7.51 mGy
--- NOTE | 2025-05-28 13:45 | PDOC.PAIN_ITS ---
Date of service: 05/28/25 Time of Service: 13:47 Pain Managment Procedure Note Procedure Note Procedure Note: Lumbar Medial Branch Block ? Location: Bilateral Medial Branches ? Levels: L3,4,5? (L4-5, L5-S1 FACET) ? 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 Post-procedure Diagnosis:? The same as above ? Sedation: NONE? Estimated blood loss:? less than 2 ml ? Surgeon:? Ranjit Wilks MD COMMENT: Patient has lumbar spondylosis with mechanical low back pain and previously had radiofrequency ablation. This was several years ago. Pain is similar plan is to repeat medial branch blocks for consideration of radiofrequency ablation ? Procedure Detail:? The procedure and potential risks were explained to the patient and informed written consent was obtained. The patient was escorted to the procedure room and placed in the prone position. Pillows were utilized for proper positioning and comfort.? Time out was performed in procedure room with nursing staff confirming the patient's identity, procedure to be performed, allergies, and any blood thinning or anti-platelet medications. The patient's lower back was prepped with chlorhexidine and draped in a sterile fashion. Sterile technique was maintained throughout the procedure.? Sterile gloves were used, a face mask was worn, and new single dose vials of all medications were used with the top being swabbed with alcohol and given time to dry prior to withdrawal of medication.? A left AND right-sided oblique fluoroscopic view was obtained, with visualization of the: ?RIGHT and LEFT L3,4 and DORSAL RAMUS L5 AT SACRAL ALA ? junction of the transverse process and superior articular process. Lidocaine 1% was used to anesthetize the skin. A 22-gauge Quincke needle was advanced along the superior margin of the transverse process and lateral to the articular process.? It was directed inferiorly and medially so that the tip struck the junction of the base of the transverse process and the superior articular process. The needle was then walked over the superior aspect of the transverse process and advanced slightly along the course of the L3,4,5 medial branch nerves. Proper placement was verified in A/P, oblique and lateral views under fluoroscopy. At this location, following negative aspiration, 0.5ml 0.5% bupivac terence was injected.? The patient tolerated the procedure well and was transported to the recovery area for observation and discharge instructions. Permanent images saved and recorded. Follow-up:? The patient will return in 2 weeks for confirmatory LMBBs if they? meet the criteria from today's procedure lasting for at least 2 hours.? COMMENT:Pain went from 6/10 to 0/10. Before the patient left patient had greater than 100% pain relief. Will consider updating MRI patient does not meet criteria to proceed to the next block.. Coding Conscious Sedation used for procedure: No CPT Codes: LMBB (includes Fluoro) Lumbar/Sacral, single lvl *BILATERAL* - [id number] ([id number]~G5) 50 - BILATERAL PROCEDURE LMBB (includes Fluoro) Lumbar/Sacral, 2nd lvl - 86746 ([id number] ~G) LT - LEFT SIDE, RT - RIGHT SIDE Additional Codes: Date of Service () Diagnoses: M47.817 Spondylosis without myelopathy or radiculopathy, lumbosacral region M47.816 Spondylosis without myelopathy or radiculopathy, lumbar region
== END 2025-05-28 12:37 | disposition home or self-care (01) ==
LOC: PC 12:36
PROVIDERS: PCP Student in an Organized Health Care Education/Training Program; Visit Provider Anesthesiology Pain Medicine
DX: M54.50 Low back pain, unspecified (principal); M47.816 Spondylosis without myelopathy or radiculopathy, lumbar region; M47.817 Spondylosis without myelopathy or radiculopathy, lumbosacral region
CPT/HCPCS: 64493; 64494; 72100; J0665

== ENCOUNTER 2025-06-26 09:53 | Outpatient (CLI) | payer MEDICARE, MEDICAID, SELFPAY ==
--- NOTE | 2025-06-26 06:00 | DI.RAD_ITS ---
Exam(s) XR PAIN CLINIC LUMBAR SP 2V EXAM: XR PAIN CLINIC LUMBAR SP 2V CLINICAL HISTORY: DX: Lumbar Spondylosis. TECHNIQUE: Fluoroscopy was provided for the referring physician for guidance with performing pain clinic injection procedure. COMPARISON: No exams were available for comparison FINDINGS: Please see procedure note for details. Fluoro time: 12.9 seconds RADIATION DOSE DELIVERED: rogers Sharma=3.6 mGy
[2025-06-26 09:54] VITALS: BP 172/83; PULSE 83; RESP 18; TEMP 37.2; O2SAT 97
[2025-06-26 10:31] VITALS: PULSE 79; O2SAT 96
[2025-06-26 10:40] VITALS: PULSE 97; O2SAT 96
--- NOTE | 2025-06-26 10:47 | PDOC.PAIN ---
Date of service: 06/26/25 Time of Service: 10:56 Pain Managment Procedure Note Procedure Note Procedure Note: LUMBAR MEDIAL BRANCH BLOCK #2 Location: Bilateral Medial Branches ? Levels: L3,4,5? (L4-5, L5-S1 FACET) ? 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 Post-procedure Diagnosis:? The same as above ? Sedation: NONE? Estimated blood loss:? less than 2 ml ? Surgeon:? Ranjit Wilks MD COMMENT: Patient had? GREATER THAN 80 % relief after the first medial branch block for greater than the duration of the local anesthetic.? PRE PROCEDURE PAIN SCORE: 5/10 ? Procedure Detail:? The procedure and potential risks were explained to the patient and informed written consent was obtained. The patient was escorted to the procedure room and placed in the prone position. Pillows were utilized for proper positioning and comfort.? Time out was performed in procedure room with nursing staff confirming the patient's identity, procedure to be performed, allergies, and any blood thinning or anti-platelet medications. The patient's lower back was prepped with chlorhexidine and draped in a sterile fashion. Sterile technique was maintained throughout the procedure.? Sterile gloves were used, a face mask was worn, and new single dose vials of all medications were used with the top being swabbed with alcohol and given time to dry prior to withdrawal of medication.? A left and right-sided oblique fluoroscopic view was obtained, with visualization of the: ?RIGHT and LEFT L3,4 and DORSAL RAMUS L5 AT SACRAL ALA ? junction of the transverse process and superior articular process. Lidocaine 1% was used to anesthetize the skin. A 22-gauge Quincke needle was advanced along the superior margin of the transverse process and lateral to the articular process.? It was directed inferiorly and medially so that the tip struck the junction of the base of the transverse process and the superior articular process. The needle was then walked over the superior aspect of the transverse process and advanced slightly along the course of the L3,4,5 medial branch nerves. Proper placement was verified in A/P, oblique and lateral views under fluoroscopy. At this location, following negative aspiration, 0.5ml 2% lidocaine was injected.? The patient tolerated the procedure well and was discharged home with instructions. Permanent images saved and recorded. Follow-up:?? Will plan to proceed with lumbar medial branch RFA if the patient gets good relief from today's procedure lasting for at least 2 hours. COMMENT:Pain went from 5/10 to 0/10. Before the patient left patient had 100% pain relief. Reviewing her records and do not see a recent MRI. I think it would be prudent to obtain 1 before proceeding with RFA. Patient asked me about other medication. She might benefit from meloxicam or Celebrex rather than ibuprofen. I will defer to her PCP to make that decision and prescription. Coding Conscious Sedation used for procedure: No CPT Codes: LMBB (includes Fluoro) Lumbar/Sacral, 2nd lvl - 16368 ([id number] ~G) RT - RIGHT SIDE, LT - LEFT SIDE LMBB (includes Fluoro) Lumbar/Sacral, single lvl *BILATERAL* - [id number] ([id number]~G5) 50 - BILATERAL PROCEDURE Additional Codes: Date of Service () Diagnoses: M47.817 Spondylosis without myelopathy or radiculopathy, lumbosacral region M47.816 Spondylosis without myelopathy or radiculopathy, lumbar region
[2025-06-26] MEDS: Nerve Block Tray 1 EACH MC (10:51)
[2025-06-26] MEDS: Lidocaine 2% Pres-Free 5 ML VIAL IJ (10:51)
== END 2025-06-26 09:54 | disposition home or self-care (01) ==
LOC: PC 09:53
PROVIDERS: PCP Student in an Organized Health Care Education/Training Program; Visit Provider Anesthesiology Pain Medicine
DX: M54.59 Other low back pain (principal); M47.816 Spondylosis without myelopathy or radiculopathy, lumbar region; M47.817 Spondylosis without myelopathy or radiculopathy, lumbosacral region
CPT/HCPCS: 64493; 64494; 72100